=== PATIENT | male | born 1940 | race Caucasian/White ===

== ENCOUNTER 2018-02-26 07:41 | Inpatient (IN) | payer OTHER ==
[2018-02-26] MEDS ORDERED: NA CHLORIDE 0.9% 1,000 ML ONE (07:58)
[2018-02-26] MEDS ORDERED: FENTANYL CITR 100 MCG/2 ML ONE (07:58)
[2018-02-26 08:07] LABS: Absolute Lymphocytes (CBC) 1.5 K/uL (0.7-4.9); Absolute Monocytes 1.4 K/uL (0.1-1.3); Absolute Neutrophil 9.9 K/uL (1.8-8.0); Basophils % 0.4 % (0-1.3); Eosinophils % 1.3 % (0-4.4); Hematocrit 34.6 % (39.6-49.0); Lymphocytes % 11.2 % (15.3-44.8); MCH 33.3 pg (27.0-35.0); MPV 8.6 fL (7.6-11.3); Monocytes % 10.9 % (3.3-12.3); RBC Red Blood Cell Count 3.61 M/uL (4.33-5.43)
[2018-02-26 08:28] LABS: Potassium 3.5 mmol/L (3.5-5.1)
--- NOTE | 2018-02-26 09:35 | RAD REPORT ---
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 Cortical irregularity involves the medial aspect of the tibial stump which may indicate osteomyelitis and should be correlated clinically. No fracture or dislocation is seen. The bones are osteoporotic
--- NOTE | 2018-02-26 10:50 | ER ---
Nurse's Notes [facility] Name: Charan Werner Age: 77 yrs Sex: Male : 1940 Arrival Date: 02/26/2018 Time: 07:43 Bed 16 Private MD: Diagnosis: Cellulitis of left lower limb Presentation: 02/26 07:45 Presenting complaint: EMS states: Worsening pain to left BKA stump x 2 days. Denies hb injury/pain. Transition of care: patient was not received from another setting of care. Onset of symptoms was February 25, 2018. Risk Assessment: Do you want to hurt yourself or someone else? Patient reports no desire to harm self or others. Initial Sepsis Screen:. Care prior to arrival: IV initiated. 20 GA, in the right antecubital area, Glucose check: 141. 07:45 Method Of Arrival: EMS: [facility] 07:45 Acuity: BENOIT 3 hb 08:00 Initial Sepsis Screen: Does the patient meet any 2 criteria? No. Patient's initial sepsis screen is negative. Does the patient have a suspected source of infection? Yes: Other: wound - LEFT BKA. Historical: - Allergies: 07:49 No Known Allergies; hb - Home Meds: 07:49 Laura 180 mg Oral tab 1 tab once daily [Active]; atorvastatin 80 mg Oral tab 1 tab hb once daily [Active]; Peggy Aspirin 81 mg Oral once daily [Active]; fenofibrate 145 mg Oral once daily [Active]; gabapentin 600 mg Oral tab nightly [Active]; Klor-Con 10 10 mEq Oral TbER 1 tab once daily [Active]; losartan-hydrochlorothiazide 100-25 mg Oral tab 1 tab once daily [Active]; metoprolol succinate 50 mg Oral Tb24 twice a day [Active]; PreserVision AREDS 2 917-241-86-1 rs-htci-[id number]-mg Oral cap twice a day [Active]; Slo-Niacin 750 mg Oral TbER once daily [Active]; - PMHx: 07:49 Myocardial infarction; throat cancer; hb - PSHx: 07:49 L BKA; Tonsillectomy; hb - Immunization history:: Adult Immunizations up to date. - Social history:: Smoking status: Patient/guardian denies using tobacco. - Ebola Screening: : No symptoms or risks identified at this time. Screenin:46 Abuse screen: Denies threats or abuse. Denies injuries from another. Nutritional hb screening: No deficits noted. Tuberculosis screening: No symptoms or risk factors identified. Fall Risk Total Escobedo Fall Scale indicates Low Risk Score (25-44 pts). Fall prevention measures have been instituted. Side Rails Up X 2 Frequent Obs/Assesments occuring Family Present and informed to notify staff if they need to leave bedside As available Patient and Family Educated on Fall Prevention Program and strategies. Assessment: 07:46 General: Appears in no apparent distress. uncomfortable, Behavior is calm, cooperative. hb Pain: Pain currently is 8 out of 10 on a pain scale. Neuro: Level of Consciousness is awake, alert, obeys commands, Oriented to person, place, time, situation. Cardiovascular: Capillary refill < 3 seconds Patient's skin is warm and dry. Respiratory: Airway is patent Trachea midline Respiratory effort is even, unlabored, Respiratory pattern is regular, symmetrical, Breath sounds are clear bilaterally. GI: No signs and/or symptoms were reported involving the gastrointestinal system. : No signs and/or symptoms were reported regarding the genitourinary system. EENT: No signs and/or symptoms were reported regarding the EENT system. Derm: Skin is pink, warm \T\ dry. Wound noted left stump. Musculoskeletal: Amputation of LEFT BKA. 08:30 Reassessment: Patient appears in no apparent distress at this time. Patient and/or hb family updated on plan of care and expected duration. Pain level reassessed. Patient is alert, oriented x 3, equal unlabored respirations, skin warm/dry/pink. 09:29 Reassessment: Patient appears in no apparent distress at this time. No changes from cc3 previously documented assessment. Patient and/or family updated on plan of care and expected duration. Pain level reassessed. Patient is alert, oriented x 3, equal unlabored respirations, skin warm/dry/pink. 09:32 Reassessment: Wound care nurse at bedside. hb 10:29 Reassessment: Patient appears in no apparent distress at this time. Patient and/or cc3 family updated on plan of care and expected duration. Pain level reassessed. Patient is alert, oriented x 3, equal unlabored respirations, skin warm/dry/pink. 11:30 Reassessment: Patient appears in no apparent distress at this time. No changes from hb previously documented assessment. Patient and/or family updated on plan of care and expected duration. Pain level reassessed. Patient is alert, oriented x 3, equal unlabored respirations, skin warm/dry/pink. 12:14 Reassessment: Patient appears in no apparent distress at this time. Patient and/or hb family updated on plan of care and expected duration. Pain level reassessed. Patient is alert, oriented x 3, equal unlabored respirations, skin warm/dry/pink. Vital Signs: 07:44 BP 116 / 65; Pulse 60; Resp 16; Temp 97.6(O); Pulse Ox 100% on R/A; Pain 8/10; hb 08:30 BP 130 / 67; Pulse 59; Resp 16; Pulse Ox 100% on R/A; hb 09:29 BP 133 / 68; Pulse 60; Resp 15; Pulse Ox 100% on R/A; Pain 3/10; cc3 10:29 BP 138 / 68; Pulse 61; Resp 14; Pulse Ox 100% on R/A; cc3 11:30 BP 115 / 86; Pulse 56; Resp 15; Pulse Ox 100% on R/A; cc3 ED Course: 07:43 Patient arrived in ED. ch 07:43 Magdalene Nieves, RN is Primary Nurse. hb 07:45 Initial lab(s) drawn, by me, held in ED. Maintain EMS IV. Dressing intact. Site clean \T\ sg dry. Gauge \T\ site: 20 G RAC. IV is patent, is intact, with fluids infusing freely, with good blood return. 07:46 Patient has correct armband on for positive identification. Bed in low position. Call hb light in reach. Side rails up X2. 07:48 Triage completed. hb 07:49 Dio Eduardo PA is PHCP. cp 07:49 Presley Tolliver MD is Attending Physician. cp 07:49 EKG done, by instrument room technician. reviewed by Dio VALENCIA. at1 07:51 Arm band placed on right wrist. hb 08:08 X-ray completed. Portable x-ray completed in exam room. Patient tolerated procedure jb2 well. 08:09 XRAY Knee LEFT 2 view In Process Unspecified. EDMS 10:34 Ezequiel Luna DO is Hospitalizing Provider. cp 11:16 Repeat lab(s) drawn. by me, sent to lab. 3 11:37 X-ray completed. Portable x-ray completed in exam room. Patient tolerated procedure mh1 well. 12:02 Note: gen us delayed. pt having echo study.. lc3 12:13 No provider procedures requiring assistance completed. Patient admitted, IV remains in hb place. 12:23 Ultrasound completed. lc3 12:55 Patient moved back from ultrasound. lc3 Administered Medications: 07:55 Drug: fentaNYL (PF) 25 mcg Route: IVP; Site: right antecubital; sg 08:30 Follow up: Response: No adverse reaction; Pain is decreased hb 07:55 Drug: NS 0.9% 1000 ml Route: IV; Rate: 100 ml/hr; Site: right antecubital; sg 11:39 Follow up: Response: No adverse reaction; IV Status: Completed infusion hb 10:50 Drug: Zosyn 3.375 grams Route: IVPB; Infused Over: 60 mins; Site: right antecubital; cc3 11:38 Follow up: Response: No adverse reaction; IV Status: Completed infusion hb 11:37 Drug: NS 0.9% 1000 ml Route: IV; Rate: 75 ml/hr; Site: right antecubital; hb 11:38 Drug: vancoMYCIN 1 grams Route: IVPB; Infused Over: 2 hrs; Site: right antecubital; hb Outcome: 10:35 Decision to Hospitalize by Provider. cp 12:13 Admitted to Tele accompanied by tech, family with patient, via stretcher, room 407, Report called to FELY Duarte 12:13 Condition: stable 12:13 Instructed on the need for admit, Demonstrated understanding of instructions. 13:03 Patient left the ED. hb Signatures: Dispatcher [employer] EDMS Kaykay Joshi, RN Salvador Hansen ch, RN RN Charan Marley Martha mh1 Tanesha tony, cable cutter and swager EKG Tat1 Dio Eduardo PA PA cp Denny Red lc3 Magdalene Nieves RN RN Sajnuana Barber 3 Mariela Kuo cc3
--- NOTE | 2018-02-26 10:50 | EDPHYS ---
Physician Documentation [facility] Name: Charan Werner Age: 77 yrs Sex: Male : 1940 Arrival Date: 02/26/2018 Time: 07:43 Bed 16 Private MD: ED Physician Presley Tolliver HPI: 02/26 08:01 This 77 yrs old Male presents to ER via EMS with complaints of Leg Pain. cp 08:01 The patient presents with pain. The complaints affect the left knee. Context: HX left cp BKA. Onset: The symptoms/episode began/occurred and became worse this morning. Associated signs and symptoms: Pertinent negatives fever, swelling, warmth. Treatment prior to arrival includes: no previous treatment. Historical: - Allergies: 07:49 No Known Allergies; hb - Home Meds: 07:49 Laura 180 mg Oral tab 1 tab once daily [Active]; atorvastatin 80 mg Oral tab 1 tab hb once daily [Active]; Peggy Aspirin 81 mg Oral once daily [Active]; fenofibrate 145 mg Oral once daily [Active]; gabapentin 600 mg Oral tab nightly [Active]; Klor-Con 10 10 mEq Oral TbER 1 tab once daily [Active]; losartan-hydrochlorothiazide 100-25 mg Oral tab 1 tab once daily [Active]; metoprolol succinate 50 mg Oral Tb24 twice a day [Active]; PreserVision AREDS 2 [id number] hv-owwy-jh-mg Oral cap twice a day [Active]; Slo-Niacin 750 mg Oral TbER once daily [Active]; - PMHx: 07:49 Myocardial infarction; throat cancer; hb - PSHx: 07:49 L BKA; Tonsillectomy; hb - Immunization history:: Adult Immunizations up to date. - Social history:: Smoking status: Patient/guardian denies using tobacco. - Ebola Screening: : No symptoms or risks identified at this time. ROS: 08:05 Constitutional: Negative for body aches, chills, fever, poor PO intake. cp 08:05 Eyes: Negative for injury, pain, redness, and discharge. cp 08:05 ENT: Negative for drainage from ear(s), ear pain, sore throat, difficulty swallowing, difficulty handling secretions. 08:05 Cardiovascular: Negative for chest pain, edema. 08:05 Respiratory: Negative for cough, shortness of breath, wheezing. 08:05 Abdomen/GI: Negative for abdominal pain, nausea, vomiting, and diarrhea. 08:05 Back: Negative for pain at rest, pain with movement, radiated pain. 08:05 MS/extremity: Positive for pain, tenderness, of the amputation area of left lower leg. 08:05 Skin: Negative for swelling. 08:05 All other systems are negative. Exam: 07:52 ECG was reviewed by the Attending Physician. cp 08:10 Constitutional: The patient appears in no acute distress, alert, awake, non-toxic, well cp developed, well nourished. 08:10 Head/Face: Normocephalic, atraumatic. cp 08:10 Eyes: Periorbital structures: appear normal, Conjunctiva: normal, no exudate, no injection, Sclera: no appreciated abnormality, Lids and lashes: appear normal, bilaterally. 08:10 ENT: External ear(s): are unremarkable, Nose: is normal, Mouth: Lips: moist, Oral mucosa: pink and intact, moist, Posterior pharynx: is normal, airway is patent, no erythema, no exudate. 08:10 Chest/axilla: Inspection: normal, Palpation: is normal, no crepitus, no tenderness. 08:10 Cardiovascular: Rate: normal, Rhythm: regular, Edema: is not appreciated, JVD: is not appreciated. 08:10 Respiratory: the patient does not display signs of respiratory distress, Respirations: normal, no use of accessory muscles, no retractions, no splinting, no tachypnea, labored breathing, is not present, Breath sounds: are clear throughout, no decreased breath sounds, no stridor, no wheezing. 08:10 Abdomen/GI: Inspection: abdomen appears normal, Palpation: abdomen is soft and non-tender, in all quadrants. 08:10 Musculoskeletal/extremity: Extremities: grossly normal except: noted in the left leg: tenderness, BKA. 08:10 Skin: minimal erythema and swelling noted at left lower extremity amputation site. Vital Signs: 07:44 BP 116 / 65; Pulse 60; Resp 16; Temp 97.6(O); Pulse Ox 100% on R/A; Pain 8/10; hb 08:30 BP 130 / 67; Pulse 59; Resp 16; Pulse Ox 100% on R/A; hb 09:29 BP 133 / 68; Pulse 60; Resp 15; Pulse Ox 100% on R/A; Pain 3/10; cc3 10:29 BP 138 / 68; Pulse 61; Resp 14; Pulse Ox 100% on R/A; cc3 11:30 BP 115 / 86; Pulse 56; Resp 15; Pulse Ox 100% on R/A; cc3 MDM: 08:01 Patient medically screened. cp 10:30 Data reviewed: vital signs, nurses notes, lab test result(s), radiologic studies, plain cp films. 10:30 Test interpretation: by ED physician or midlevel provider: plain radiologic studies. cp Counseling: I had a detailed discussion with the patient and/or guardian regarding: the historical points, exam findings, and any diagnostic results supporting the discharge/admit diagnosis, lab results, radiology results. 10:33 Physician consultation: Ezequiel Luna DO was contacted at 10:33, regarding admission, cp to the medical/surgical unit. patient's condition, and will see patient in ED, shortly, would like medications started, Zosyn, Vancomycin. 02/26 07:51 Order name: CBC with Diff; Complete Time: 08:43 cp 02/26 08:44 Interpretation: Normal except: WBC 13.0; RBC 3.61; HGB 12.0; HCT 34.6; ANGEL% 76.2; LYM% cp 11.2; NEUT A 9.9; MNA 1.4. 02/26 07:51 Order name: BMP; Complete Time: 08:43 cp 02/26 08:44 Interpretation: Normal except: GLUC 130; BUN 32; CRE 1.60; GFR 42. cp 02/26 09:44 Order name: Wound Culture sg 02/26 09:55 Order name: Urine Dipstick--Ancillary (enter results); Complete Time: 12:49 bd 02/26 10:19 Order name: Blood Culture Adult (2) cp 02/26 10:19 Order name: ESR; Complete Time: 12:49 cp 02/26 07:51 Order name: XRAY Knee LEFT 2 view; Complete Time: 09:41 cp 02/26 10:19 Order name: CRP; Complete Time: 12:49 cp 02/26 10:19 Order name: Procalcitonin; Complete Time: 12:49 cp 08/20 12:49 Interpretation: Procalcitonin < 0.05; Reviewed. cp 02/26 10:55 Order name: CT Head Brain wo Cont cp 02/26 10:55 Order name: Troponin I; Complete Time: 12:49 cp 02/26 11:22 Order name: XRAY Chest (1 view) cp 02/26 12:10 Order name: T4 Free; Complete Time: 12:49 EDMS 02/26 12:10 Order name: Thyroid Stimulating Hormone; Complete Time: 12:49 EDMS 02/26 07:51 Order name: Urine Dipstick-Ancillary (obtain specimen); Complete Time: 09:28 cp 02/26 08:09 Order name: [facility]; Complete Time: 10:01 EDMS 02/26 10:19 Order name: EKG; Complete Time: 10:19 cp 02/26 11:27 Order name: CT; Complete Time: 12:49 EDMS 02/26 11:44 Order name: RAD; Complete Time: 12:49 EDMS EC:52 Rate is 58 beats/min. MD interval is normal. QRS interval is prolonged at 138 msec. QT cp interval is normal. Interpreted by me. Reviewed by me. Administered Medications: 07:55 Drug: fentaNYL (PF) 25 mcg Route: IVP; Site: right antecubital; sg 08:30 Follow up: Response: No adverse reaction; Pain is decreased hb 07:55 Drug: NS 0.9% 1000 ml Route: IV; Rate: 100 ml/hr; Site: right antecubital; sg 11:39 Follow up: Response: No adverse reaction; IV Status: Completed infusion hb 10:50 Drug: Zosyn 3.375 grams Route: IVPB; Infused Over: 60 mins; Site: right antecubital; cc3 11:38 Follow up: Response: No adverse reaction; IV Status: Completed infusion hb 11:37 Drug: NS 0.9% 1000 ml Route: IV; Rate: 75 ml/hr; Site: right antecubital; hb 11:38 Drug: vancoMYCIN 1 grams Route: IVPB; Infused Over: 2 hrs; Site: right antecubital; hb Disposition: 17:25 Co-signature as Attending Physician, Presley Tolliver MD I agree with the assessment and kdr plan of care. Disposition: 02/26/18 10:35 Hospitalization ordered by Ezequiel Luna for Inpatient Admission. Preliminary diagnosis is Cellulitis of left lower limb. - Bed requested for Telemetry/MedSurg (Inpatient). - Status is Inpatient Admission. hb - Condition is Stable. - Problem is new. - Symptoms have improved. UTI on Admission? No Signatures: Dispatcher [employer] EDMS Dilia Donahue Salvador Gerardo, RN RN sg Presley Tolliver MD MD [facility] Dio Eduardo, PA PA cp Magdalene Nieves RN RN Mariela Kuo cc3 Corrections: (The following items were deleted from the chart) 08:44 08:43 Normal except: WBC 13.0; RBC 3.61; HGB 12.0; HCT 34.6; ANGEL% 76.2; LYM% 11.2; NEUT cp A 9.9. cp 11:46 10:35 Hospitalization Ordered by Ezequiel Luna DO for Inpatient Admission. Preliminary bd diagnosis is Cellulitis of left lower limb. Bed requested for Telemetry/MedSurg (Inpatient). Status is Inpatient Admission. Condition is Stable. Problem is new. Symptoms have improved. UTI on Admission? No. cp 13:03 11:46 02/26/2018 10:35 Hospitalization Ordered by Ezequiel Luna DO for Inpatient hb Admission. Preliminary diagnosis is Cellulitis of left lower limb. Bed requested for Telemetry/MedSurg (Inpatient). Status is Inpatient Admission. Condition is Stable. Problem is new. Symptoms have improved. UTI on Admission? No. bd
[2018-02-26] MEDS ORDERED: PIPER/TAZO/NS 3.375gm 3.375 GM/100 ML BAG ONE (10:53)
[2018-02-26] MEDS ORDERED: VANCOMYCIN 1 GM/250 ML BAG ONE (10:53)
[2018-02-26] MEDS ORDERED: ACETAMINOPHEN 500 MG TAB PO PRN (10:59)
[2018-02-26] MEDS ORDERED: TRAMADOL HCL 50 MG TAB PO PRN (10:59)
[2018-02-26] MEDS ORDERED: IPRATROPIUM BROM 0.5MG/2.5ML NEB PRN (10:59)
[2018-02-26] MEDS ORDERED: ONDANSETRON 4 MG/2 ML VIAL IV PRN (10:59)
[2018-02-26] MEDS ORDERED: ALBUTEROL 2.5 MG/3 ML NEB SOL NEB PRN (10:59)
[2018-02-26] MEDS ORDERED: HYDROCODONE/APAP 7.5/325 MG TAB PO PRN (10:59)
[2018-02-26] MEDS: NA CHLORIDE 0.9% 1,000 ML IV SCH (11:00)
--- NOTE | 2018-02-26 11:26 | RAD REPORT ---
EXAM DESCRIPTION: CT - Head Brain Wo Cont - 02/26/2018 11:20 am CLINICAL HISTORY: SYNCOPE COMPARISON: Head Brain Wo Cont dated 05/22/2017; Ct Stroke Brain Wo Cont dated 06/20/2016; Knee Left 2 View dated 02/26/2018 TECHNIQUE: All CT scans are performed using dose optimization technique as appropriate and may inclu de automated exposure control or mA/KV adjustment according to patient size. FINDINGS: No intracranial hemorrhage, hydrocephalus or extra-axial fluid collection.Moderate general ized brain atrophy is present with mild to moderate periventricular and deep white matter chronic jacey rovascular ischemic changes.No areas of brain edema or evidence of midline shift. Left vertebral mayra ry is calcified. The paranasal sinuses and mastoids are clear. The calvarium is intact. IMPRESSION: No acute intracranial abnormality.
--- NOTE | 2018-02-26 11:29 | EKG ---
Test Date: 2018-02-26 Test Time: 07:45:21 Medical Records Administrator: SARA MEASUREMENT RESULTS: Intervals: Rate: 58 HI: 138 QRSD: 138 QT: 478 QTc: 469 [place]: P: 64 HI: 138 QRS: 88 T: 40 INTERPRETIVE STATEMENTS: Sinus bradycardia with premature atrial complexes Right bundle branch block Abnormal ECG Compared to ECG 08/18/2016 06:12:30 Atrial premature complex(es) now present Electronically Signed On 02-26-18 11:28:38 CDT by Mono Nova
--- NOTE | 2018-02-26 11:43 | RAD REPORT ---
EXAM DESCRIPTION: RAD - Chest Single View - 02/26/2018 11:38 am CLINICAL HISTORY: syncope Chest pain. COMPARISON: Chest Pa And Lat (2 Views) dated 10/09/2017; Chest Single View dated 06/20/2016; Chest Pa And Lat (2 Views) dated 11/02/2015; CHEST PA AND LAT 2 VIEW dated 03/28/2013 FINDINGS: Portable technique limits examination quality. The lungs are grossly clear. The heart is normal in size. No displaced fractures. IMPRESSION: No acute intrathoracic process suspected.
[2018-02-26 12:09] LABS: Thyroid Stimulating Hormone 1.39 uIU/mL (0.36-3.74)
[2018-02-26 12:11] LABS: Urine Blood NEGATIVE (NEG); Urine Glucose NEGATIVE (NEG); Urine Protein NEGATIVE (NEG)
--- NOTE | 2018-02-26 13:17 | RAD REPORT ---
EXAM DESCRIPTION: AROLDO - CP - 02/26/2018 12:42 pm CLINICAL HISTORY: Syncope, HX of Carotid disease COMPARISON: Brain Wo Cont dated 10/09/2017 TECHNIQUE: Real-time sonographic evaluation of both carotid systems was performed. Doppler interroga tion was performed with waveform tracing bilaterally. FINDINGS: Normal high resistance waveforms are noted in both external carotid arteries. The common c arotid arteries and internal carotid arteries show normal low resistance waveforms. Moderate hard plaque is present in the both carotid bulbs. Peak systolic and end diastolic velocity v alues and the ICA/CCA ratios are in the non-hemodynamically significant range. Antegrade flow seen in both vertebral arteries. IMPRESSION: Moderate hard plaque is seen in both carotid bulbs. No evidence of a hemodynamically significant stenosis.
[2018-02-26 13:24] VITALS: BMI 21.9
--- NOTE | 2018-02-26 13:36 | ECHO ---
HEIGHT: 5 ft 8 in WEIGHT: 144 lb 0 oz DATE OF STUDY: 02/26/[address]: Ezequiel Luna DO 2-DIMENSIONAL: YES M.MODE: YES DOPPLER: YES COLOR FLOW: YES TDS: NO PORTABLE: NO DEFINITY: NO BUBBLE STUDY: NO DIAGNOSIS: SYNCOPE CARDIAC HISTORY: CATHERIZATION: YES SURGERY: YES PROSTHETIC VALVE: NO PACEMAKER: NO MEASUREMENTS (cm) DIASTOLIC (NORMALS) SYSTOLIC (NORMALS) IVSd 1.0 (0.6-1.2) LA Diam 3.8 (1.9-4.0) LVEF 57% LVIDd 3.8 (3.5-5.7) LVIDs 2.7 (2.0-3.5) %FS 29% LVPWd 1.0 (0.6-1.2) Ao Diam 2.7 (2.0-3.7) 2 DIMENSIONAL ASSESSMENT: RIGHT ATRIUM: NORMAL LEFT ATRIUM: NORMAL RIGHT VENTRICLE: NORMAL LEFT VENTRICLE: NORMAL TRICUSPID VALVE: NORMAL MITRAL VALVE: NORMAL PULMONIC VALVE: NORMAL AORTIC VALVE: NORMAL PERICARDIAL EFFUSION: NONE AORTIC ROOT: NORMAL LEFT VENTRICULAR WALL MOTION: MILD INFERIOR HYPOKINESIS. DOPPLER/COLOR FLOW: MILD TRICUSPID REGURGITATION. NORMAL RIGHT VENTRICULAR SYSTOLIC PRESSURE. COMMENTS: NORMAL LEFT VENTRICULAR EJECTION FRACTION WITH WALL MOTION ABNORMALITY. MILD TRICUSPID REGURGITATION. TECHNOLOGIST: NANCY DUDLEY
--- NOTE | 2018-02-26 13:39 | P.HP ---
Certification for Inpatient Patient admitted to: Inpatient With expected LOS: >2 Midnights Patient will require the following post-hospital care: Other Practitioner: I am a practitioner with admitting privileges, knowledge of patient current condition, hospital course, and medical plan of care. Services: Services provided to patient in accordance with Admission requirements found in Title 42 Section 412.3 of the Code of Federal Regulations Patient History Date of Service: 02/26/18 Primary Care Provider: Dr. Kendrick; Surgery-Dr. Archer Reason for admission: Left below-knee amputation stump pain and syncope History of Present Illness: 77-year-old male present emergency room after he started to have some pain to the left stump of his below-knee amputation. This started several days ago. He noted some exudate as well. No fever, chills noted. Last night pain was worse. He reports that this pain comes and goes. He was treated for an ulcer about 2-3 months ago by surgery. About 6 months ago, patient was given a new prosthetic. Patient also reports a syncopal episode that occurred this morning. This lasted for several seconds. It came on suddenly. He denied any chest pain, shortness of breath, he reports some wheezing from time to time. No significant headaches or dizziness noted. He had been feeling weak during this time. He denied any significant slurred speech or weakness to the lower extremities. Patient has past medical history of hypertension, hyperlipidemia, COPD, tobacco abuse, peripheral vascular disease. In the ER patient was evaluated. White count 13.0, hemoglobin 12. Sodium 137, potassium 3.5, BUN of 32, creatinine 1.6 with a GFR 42. Glucose 130. Head CT showed no acute abnormality. Chest x-ray showed no acute changes. Carotid Doppler showed moderate plaque. X-ray of the left knee showed possible medial aspect stump osteomyelitis. Patient was started on IV antibiotic therapy. Patient admitted for further evaluation. When I saw the patient the ER, he appeared comfortable. He did not appear in any respiratory distress. He did report some fatigue. Family reports that he has not been eating appropriately. He has had poor oral intake. The patient further reports that he had a heart catheterization done last year in August 2016. A stent to the right RCA was done. He also reports that he has been seen by a neurology recently for dizziness. He has been given medication for this. His last MRI was done October of 2017 which was unremarkable. Allergies No Known Allergies Allergy (Verified 08/15/16 10:41) Home medications list reviewed: Yes Home Medications: Losartan/Hydrochlorothiazide [Hyzaar 100-25 Tablet] 1 each PO BEDTIME 08/17/16 Vitamin B Complex [B Complex] 1 each PO DAILY 08/17/16 Atorvastatin Calcium [Lipitor] 80 mg PO BEDTIME tab 08/18/16 Fenofibrate [Tricor*] 160 mg PO DAILY AT SUPPER tab 08/18/16 Metoprolol Succinate [Toprol Xl*] 50 mg PO BID 6AM 6PM tab 08/18/16 Potassium Oral Tab [Klor-Con 10 mEq Tab*] 10 meq PO DAILY tab 08/18/16 Aspirin [Aspirin EC 325 MG] 325 mg PO DAILY 02/26/18 Clopidogrel Bisulfate [Plavix] 75 mg PO BEDTIME 02/26/18 - Past Medical/Surgical History Diabetic: No -: Hypertension -: Hyperlipidemia -: Tobacco abuse -: Peripheral vascular disease -: Carotid arterial disease -: CAD with stent to the RCA -: Chronic renal disease -: History of left BKA -: Left BKA Psychosocial/ Personal History: Patient is of 54 years. He has 2 children. He is retired - Family History Brother -: Heart disease, Hypertension, Other (see notes) (Dementia) - Social History Smoking Status: Heavy Tobacco smoker (>10 cigarettes/day) Counseled patient to stop smoking for: less than 10 minutes Smoking therapy provided: Yes Patient receptive to therapy: Yes Alcohol use: No CD- Drugs: No Caffeine use: Yes Place of Residence: Home Review of Systems General: Weakness, Malaise, As per HPI Eyes: Unremarkable ENT: Unremarkable Respiratory: Wheezing, As per HPI Cardiovascular: Light Headedness, As per HPI Gastrointestinal: Unremarkable Genitourinary: Unremarkable Musculoskeletal: Pedal edema, As per HPI Integumentary: As per HPI Neurological: Weakness, As per HPI Lymphatics: Unremarkable Physical Examination - Vital Signs Temperature: 97 F Blood Pressure: 158/72 Pulse: 65 Respirations: 18 Pulse Ox (%): 96 - Physical Exam General: Alert, In no apparent distress, Oriented x3, Cooperative HEENT: Atraumatic, Normocephalic, PERRLA, Other (Dry mucous membranes) Neck: Supple, No Thyromegaly Respiratory: Expiratory wheezes (Occasional wheezing bilateral) Cardiovascular: Normal pulses, Regular rate/rhythm Gastrointestinal: Normal bowel sounds, Soft and benign, Non-distended, No ascites, No tenderness, No masses, No rebound, No guarding Musculoskeletal: No warmth, Tenderness (Pain to the stump of the left below- knee amputation.) Integumentary: Other (Mild erythema noted to the left below-knee amputation stump medially and distally.) Neurological: Normal speech, Normal strength at 5/5 x4 extr, Normal tone, Normal affect - Studies Laboratory Data (last 24 hrs) 02/26/18 07:49: Sodium 137, Potassium 3.5, BUN 32 H, Creatinine 1.60 H, Glucose 130 H 02/26/18 07:49: WBC 13.0 H, Hgb 12.0 L, Hct 34.6 L, Plt Count 244 Assessment and Plan - Problems (Diagnosis) (1) Osteomyelitis Current Visit: Yes Status: Suspected Plan: X-ray of the left stump notes possible osteomyelitis. Will check MRI to confirm. Patient started on vancomycin and Zosyn. Will consult surgery and infectious disease to further address. If positive for osteomyelitis patient will likely require long-term IV antibiotic therapy and PICC line. If so patient may also require long-term acute care facility placement or skilled placement. This was addressed in detail with the patient. Patient understands this Qualifiers: Osteomyelitis type: unspecified type Osteomyelitis location: other site Qualified Code(s): M86.9 - Osteomyelitis, unspecified (2) Syncope Current Visit: Yes Status: Acute Plan: Patient with syncopal episode. Patient has multiple risk factors. Will check echocardiogram, MRI stroke protocol. Will consult cardiology and neurology to further assess. Patient with history of Coronary artery disease with previous stent placed to the RCA in 2017. Patient with peripheral vascular disease and Carotid arterial disease. Qualifiers: Syncope type: unspecified Qualified Code(s): R55 - Syncope and collapse (3) Chronic renal disease Current Visit: Yes Status: Acute Plan: Will hold EMILIANO-inhibitor and diuretic therapy. Will check renal ultrasound. Will consult Nephrology to further assess. Qualifiers: Chronic kidney disease stage: stage 2 (mild) Qualified Code(s): N18.2 - Chronic kidney disease, stage 2 (mild) (4) Peripheral vascular disease Current Visit: Yes Status: Chronic Plan: Will continue with aspirin. Will provide DVT prophylaxis. (5) Carotid arterial disease Current Visit: Yes Status: Chronic Plan: Will continue with aspirin. Will also continue with his statin medication. Will check carotid Doppler and fasting lipid panel. Qualifiers: Carotid artery disease type: unspecified Laterality: bilateral Qualified Code(s): I77.9 - Disorder of arteries and arterioles, unspecified (6) Hypertension Current Visit: Yes Status: Chronic Plan: Will continue with his medication but will make adjustments due to acute on chronic renal disease. Will hold EMILIANO-inhibitor and diuretic therapy at time. Qualifiers: Hypertension type: essential hypertension Qualified Code(s): I10 - Essential (primary) hypertension (7) Hyperlipidemia Current Visit: Yes Status: Chronic Plan: Will continue with statin medication. Will check fasting lipid panel. Qualifiers: Hyperlipidemia type: unspecified Qualified Code(s): E78.5 - Hyperlipidemia , unspecified (8) Tobacco abuse Current Visit: Yes Status: Chronic Plan: Will provide nicotine patch. Cessation addressed in detail. (9) COPD (chronic obstructive pulmonary disease) Current Visit: Yes Status: Suspected Plan: Patient may have underlying COPD. Will start Brovana and nebulized treatments. Patient may require medication at discharge. Qualifiers: COPD type: chronic bronchitis Chronic bronchitis type: unspecified Qualified Code(s): J42 - Unspecified chronic bronchitis (10) CAD (coronary artery disease) Onset Date: 08/18/16 Current Visit: No Status: Chronic Plan: Continue as above. (11) Anemia Current Visit: Yes Status: Chronic Plan: This is likely chronic from chronic renal disease. Will monitor closely. Qualifiers: Anemia type: other cause Other causes of anemia: chronic disease, other Qualified Code(s): D63.8 - Anemia in other chronic diseases classified elsewhere Discharge Plan: Other (Long-term acute care facility placement verses skilled placement) Plan to discharge in: Greater than 2 days - Advance Directives Does patient have a Living Will: No Does patient have a Durable POA for Healthcare: No - Code Status/Comfort Care Code Status Assessed: Yes (Patient is full code.) Time Spent Managing Pts Care (In Minutes): 55
--- NOTE | 2018-02-26 13:51 | RAD REPORT ---
EXAM DESCRIPTION: US - Renal Ultrasound-Complete - 02/26/2018 12:46 pm CLINICAL HISTORY: Chronic renal disease COMPARISON: No comparisons FINDINGS: Both kidneys are normal in size, shape and echotexture. The right kidney measures 9.7 x 5.4 x 4.7 cm. No hydronephrosis, focal mass or perinephric fluid. Mul tiple benign-appearing cysts are present. The left kidney measures 10.6 x 5.5 x 4.8 cm. No hydronephrosis, focal mass or perinephric fluid. Mul tiple benign-appearing cysts are present largest measuring 4 cm. The urinary bladder is incompletely distended without gross abnormality seen. IMPRESSION: Multiple bilateral renal cysts are present, benign in appearance.
[2018-02-26] MEDS ORDERED: PNEUMOCOCCAL VACCINE 0.5 ML IMVAC ONE (15:00)
[2018-02-26] MEDS: VANCOMYCIN 1.25 GM in NA CHLORIDE 0.9% 250 ML IVPB SCH (17:45)
[2018-02-26] MEDS: NICOTINE 21 MG/PAT TD SCH (17:46)
[2018-02-26] MEDS: PIPER/TAZO/NS 3.375gm 3.375 GM/100 ML BAG IVPB SCH (17:46)
[2018-02-26] MEDS: METOPROLOL XL 50 MG TAB PO SCH (17:57)
[2018-02-26] MEDS: ENOXAPARIN 40 MG/0.4 ML SQ SCH (17:57)
--- NOTE | 2018-02-26 19:13 | CON ---
History Of Present Illness: Mr. Werner came to the hospital because he had lightheadedness. Every t maximo he tried to stand up he got near syncopal and there was syncope. He was brought to the ER. The patient has coronary heart disease with a stent placed in his right coronary artery about a year and a half ago. He is not having angina now. He has a history of severe vascular disease. He had a lef t znljp-qrx-[id number] amputation more than 20 years ago. He had a aortofemoral bypass long ago also. He has coronary heart disease with his last stent in August of 2016. He is a heavy cigarette smoker, has never really tried to quit. He has underlying hypertension, dyslipidemia. Outpatient Medications: Losartan, hydrochlorothiazide, Lipitor 80, fenofibrate, metoprolol potassium , clopidogrel, and aspirin. Allergies: HE HAS NO ALLERGIES. Physical Examination: General: He appears to be his stated age or older, not in distress. Vital signs: Blood pressure 158/72 supine. We do not have a standing or sitting blood pressure, anjel t will be done later. Lungs: Clear. Heart: Unremarkable. No carotid bruit. Extremities: Left bfajl-zqb-iaak amputation. Distal pulses are diminished. There is an ulcer at th e end of the stump. Radiologic Data: X-rays reveal possible osteomyelitis of the left tibia. Impression: The patient has hypotension, falling and syncope was probably hypotension caused by infe ction. He will be getting antibiotics. We will try and identify the organism that is responsible fo r this by culturing the wound and culturing blood. Ultimately, he may benefit from a repeat amputati on to get some of the bone that is infected. It would seriously limit his ability to walk but of cou rse it is a difficult decision. He has been walking with a prosthetic leg for more than 20 years. I am not sure enough of the tibia could be removed and still allow him to walk the way he has been, fe lt a very difficult choice to be made indeed. We will try and learn more about how much bone might b e infected with other studies. He is a stable enough patient to undergo an amputation if it is neede d. I think once his infection is under better control, his blood pressure will be easier to control and he will be able to stand again. MITUL/CHRISTOPHER Voice ID: [id number] Report ID: [id number]
[2018-02-26 19:55] LABS: CKMB Creatine Kinase MB 1.2 ng/mL (0.3-3.6)
[2018-02-26] MEDS: KCL 20 MEQ/100 mL IVPB 20 MEQ/100 ML BAG IV SCH ×3 (20:00→22:07)
--- NOTE | 2018-02-26 20:34 | CON ---
This is a 77-year-old male I was consulted for left BKA site osteomyelitis. The patient had BKA done 17 years ago. Denies any headache, nausea, vomiting, chest pain, abdominal pain, constipation, or d iarrhea. The patient came in because of worsening pain and discharge from the BKA stump site. Has s ignificant history of tobacco usage and cardiac problems including myocardial infarction. No other c omplaints at this time. No fevers. No allergies. No other discomfort. Past Medical History: Hypertension, hyperlipidemia, tobacco abuse, peripheral vascular disease, zimmer tid artery disease, coronary artery disease, left BKA 17 years ago. Social History: Tobacco, positive. Alcohol, negative. Family History: Noncontributory. Medication: Vancomycin and Zosyn. See MARs for other medication. Allergies: NO KNOWN DRUG ALLERGIES. Review of Systems: A 10-point review was performed. Physical Examination: General: This is a 77-year-old male, lying in bed, not in any acute cardiopulmonary distress. Vital Signs: Temperature 97, pulse 65, respiration 18, blood pressure 158/72. HEENT: Unremarkable. Neck: Supple. Lungs: Clear to auscultation. Heart: S1, S2. Regular. Abdomen: Soft, nontender. Bowel sounds positive. Extremity: Left BKA site with yellowish discharge, foul smelling. Assessment And Plan: Osteomyelitis of left BKA amputation stump site with foul smelling discharge. I agree with vancomycin and Zosyn. Empiric coverage, awaiting culture results. Continue antibiotic for 6 weeks. Consider long-term acute care. We will follow the patient as needed. Thank you, Dr. Luna for consult. NF/PERLITAL Voice ID: [id number] Report ID: [id number]
--- NOTE | 2018-02-26 21:32 | RAD REPORT ---
EXAM DESCRIPTION: MRI - Brain Wo Cont - 02/26/2018 9:24 pm CLINICAL HISTORY: TIA/CVA COMPARISON: MRA Head Wo Cont dated 02/26/2018; Brain Wo Cont dated 10/09/2017 TECHNIQUE: Multi-sequence, multiplanar MR imaging of the brain was performed without contrast. FINDINGS: No intracranial hemorrhage, hydrocephalus or extra-axial fluid collections.Moderate conflu ent T2/FLAIR hyperintensity in the periventricular and deep white matter is present compatible with c hronic microvascular ischemic changes. No edema or shift of midline structures. No findings to suspec t brain mass. DWI is negative for acute CVA. Midline structures are normally formed. Mastoid air cells and paranasal sinuses are clear. IMPRESSION: Negative for acute CVA or other acute intracranial abnormality.
--- NOTE | 2018-02-26 21:38 | RAD REPORT ---
EXAM DESCRIPTION: MRI - MRA Head Wo Cont - 02/26/2018 9:25 pm CLINICAL HISTORY: Syncope, HX-HTN/Hyperlipidemia/Carotid dz CVA COMPARISON: Head Brain Wo Cont dated 02/26/2018 FINDINGS: 3D noncontrast [id number] MR angiography of the [place] was performed. No aneurysm, flow-limiting stenosis or vascular malformation is seen. Forward flow seen in both verte bral arteries slightly larger on the left. The visualized dural venous sinuses appear patent. IMPRESSION: No significant flow abnormality of the [place] is identified.
--- NOTE | 2018-02-26 21:44 | RAD REPORT ---
EXAM DESCRIPTION: MRI - Knee Left Wo Cont - 02/26/2018 9:24 pm CLINICAL HISTORY: Evaluate for osteomyelitis Left BKA Pain and swelling COMPARISON: No comparisons FINDINGS: The medial meniscus is intact. The lateral meniscus is intact. The ACL and PCL are intact. The collateral ligaments are intact. Patellar and quadriceps tendons are normal. Below the knee amputation noted. Blooming artifact is seen at the stump level likely attributable to metal in the region. No marrow replacing process is seen within the stump to indicate osteomyelitis. The skin and subcutaneous tissues about the stump are thickened and mildly irregular. A small joint effusion is seen. IMPRESSION: No definitive evidence of stump osteomyelitis. Assessment in the region is mildly limite d by blooming artifact but felt to be of diagnostic quality.
[2018-02-26] MEDS: GABAPENTIN 300 MG CAP PO SCH (22:02)
[2018-02-26] MEDS: ATORVASTATIN 80 MG TAB PO SCH (22:02)
[2018-02-26] MEDS ORDERED: POTASSIUM CL SA 10 MEQ TAB PO ONE (22:24)
[2018-02-27] MEDS: ARFORMOTEROL TARTRATE 15 MCG/2 ML VIAL.NEB NEB SCH ×3 (00:04→20:31)
[2018-02-27] MEDS: PIPER/TAZO/NS 3.375gm 3.375 GM/100 ML BAG IVPB SCH ×2 (00:23→08:25)
--- NOTE | 2018-02-27 02:59 | CON ---
Date of Consultation: 02/26/2018 Chief Complaint: Chronic kidney disease, prerenal azotemia. History Of Present Illness: The patient is a 77-year-old man with history of peripheral vascular disease, hypertension, tobacco abuse, carotid arterial disease, chronic kidney stage 3, and history of left BKA. The patient has been taking multiple medications for blood pressure control including losartan-HCTZ, metoprolol. The patient has history of hyperlipidemia and peripheral vascular disease. Previously, he underwent BKA. The patient came to the hospital because of syncope. He was found to have infection in the left stump. He previously underwent left below-knee amputation. He noted some exudate and drainage with redness. He did not have fever or chills. He was complaining of pain in the stump area. Previously, he was treated for ulcer about 2-3 months ago by surgical team and Wound Care. Nephrology consultation was requested for abnormal kidney function test. The patient has history of chronic kidney disease due to hypertensive kidney disease. He is active smoker and has COPD, hypertension, hyperlipidemia, and peripheral vascular disease. He is admitted to the hospital because of status post presyncope. He was complaining of dizziness, headaches, and progressively worse balance and gait problem and developed syncope. Apparently, he did not have a seizure. Review of Systems: Constitutional: Complains of fatigue. Denies fever, chills. Eyes: Denies vision changes. Ears, Nose, Mouth and Throat: Denies sore throat or earache. Respiratory: Denies PND, orthopnea. Cardiovascular: Denies chest pain, had syncope. GI: Denies nausea, vomiting. : Denies dysuria, hematuria. Musculoskeletal: Denies muscle aches, although he had stump infection with drainage. All other systems reviewed and all are negative. Past Medical History: Hypertension, hyperlipidemia, tobacco abuse, peripheral vascular disease, carotid arterial disease, coronary artery disease with stent to RCA, chronic kidney stage 3, history of left BKA. Family History: Heart disease, hypertension, dementia. Social History: Active smoker, heavy smoker, smokes 10 cigarettes per day. Denies alcohol or illicit drugs. Physical Examination: Vital Signs: Blood pressure is 158/72. Eyes: Anicteric sclerae. EOMI. Ears, Nose, Mouth and Throat: Oral mucosa moist. No pallor. Neck: Supple. No JVD. No bruits. Lungs: Clear to auscultation bilaterally. Heart: S1, S2. No pericardial friction rub. Abdomen: Soft, benign, nontender. No rebound. No guarding. Extremities: Dressing in place. No active bleeding, no oozing. No clubbing. No cyanosis. Neurological: Moving extremities. Cranial nerves intact. Psychiatric: Alert, oriented x3. Normal affect. Laboratory Data: WBC 13, hemoglobin 12, platelet count is 244,000. Renal ultrasound showed multiple bilateral renal cysts benign in appearance, left kidney 10.6 cm in length and right kidney 9.7 cm in length. No perinephric fluid. Urinalysis; negative for blood, negative for leukocyte esterase, and negative for protein. Sodium 137, potassium 3.5, chloride 104, CO2 of 28, BUN 32, creatinine 1.6, estimated GFR 42, glucose 130, calcium 8.9. Impression And Plan: 1. Chronic kidney disease stage 3. Baseline creatinine level was 1.3. The patient developed some prerenal azotemia. Continue IV fluids. 2. Osteomyelitis. The patient is started on vancomycin and Zosyn. Monitor vancomycin toxicity panel. Adjust vancomycin accordingly to trough level. 3. Hypertension. The patient presented with presyncope and syncope. During this hospital revaluation blood pressure is in acceptable control. Continue low -sodium diet and blood pressure medication. Cardiac workup was initiated for acute coronary syndrome. 4. Peripheral vascular disease. The patient is on cholesterol lowering medication. Re-evaluate lipid panel. 5. The patient has some prerenal azotemia, less likely there is element of rhabdomyolysis at this point. CK level is within normal limits. The patient does not have obstructive uropathy but has chronic kidney disease with bilateral kidney cysts. The patient needs to follow up as outpatient for chronic kidney disease stage 3. EB/MODL Voice ID: [id number] Report ID: [id number] RADHA
[2018-02-27 04:42] LABS: Absolute Lymphocytes (CBC) 1.3 K/uL (0.7-4.9); Absolute Monocytes 1.4 K/uL (0.1-1.3); Absolute Neutrophil 8.1 K/uL (1.8-8.0); Basophils % 0.3 % (0-1.3); Eosinophils % 0.7 % (0-4.4); Hematocrit 32.2 % (39.6-49.0); Lymphocytes % 12.1 % (15.3-44.8); MCH 33.5 pg (27.0-35.0); MPV 8.9 fL (7.6-11.3); Monocytes % 13.1 % (3.3-12.3); RBC Red Blood Cell Count 3.36 M/uL (4.33-5.43)
[2018-02-27 04:53] LABS: Urine Appearance CLOUDY; Urine Bilirubin NEGATIVE (NEG); Urine Blood 3+ (NEG); Urine Color YELLOW; Urine Glucose NEGATIVE (NEG); Urine Protein 1+ (NEG); Urine Specific Gravity 1.025 (1.005-1.030)
[2018-02-27 04:54] LABS: Urine Microscopic Reflex ORDER UMIC
[2018-02-27 04:54] LABS: CKMB Creatine Kinase MB 1.5 ng/mL (0.3-3.6); Magnesium 1.6 mg/dL (1.8-2.4); Potassium 3.3 mmol/L (3.5-5.1)
[2018-02-27 05:05] LABS: Urine Bacteria <20 /HPF (NONE SEEN); Urine Culture Reflex Order REFLEXED; Urine RBC >50 /HPF (NONE SEEN)
[2018-02-27] MEDS ORDERED: MAGNESIUM SULFATE 1 gm IVPB 1 GM/100 ML BAG IV ONE (05:19)
[2018-02-27] MEDS: NA CHLORIDE 0.9% 1,000 ML IV SCH (05:58)
[2018-02-27] MEDS: METOPROLOL XL 50 MG TAB PO SCH ×3 (06:00→17:12)
[2018-02-27] MEDS ORDERED: POTASSIUM CL 40 MEQ in NA CHLORIDE 0.9% 500 ML IV SCH (06:00)
[2018-02-27] MEDS: KCL 20 MEQ/100 mL IVPB 20 MEQ/100 ML BAG IV SCH ×2 (07:41→09:00)
--- NOTE | 2018-02-27 08:23 | CON ---
Date of Consultation: 02/26/2018 Diagnosis: Left leg osteomyelitis. History Of Present Illness: He is a case of a 77-year-old patient, comes to us with multiple medical problems, but during the workup the patient was found to have a nonhealing wound and drainage wound coming from the left below-knee. The patient says some kind of gauze over that area since h e use prosthetic to ambulate. He does not remember any specific trauma, he does not remember exactly when that happened. He denies any dysuria, hematuria, hematochezia, or melena. Denies any recent [place]. Denies any family member sick at home. Allergies: NONE. Social History: He does not smoke. He does not drink alcohol. Past Medical History: Include throat cancer, peripheral vascular disease. Past Surgical History: Include tonsillectomy, left DKA many years ago. Family History: Noncontributory. Review of Systems: Constitutional: Denies any fever or chills. Respiratory: Denies any shortness of breath. Gastrointestinal: Denies any abdominal pain, nausea, vomiting, melena, hematochezia. Extremities: The patient has redness and open wound with drainage from the distal side of the below- knee amputation with tenderness. Laboratory Data: Blood work shows WBC count of 13, hemoglobin of 12 and platelets 244. Potassium 3.5 , glucose 130. X-ray of the below-knee area shows also osteomyelitis. Assessment: A 77-year-old patient with left below-knee several years ago, ambulating with prosthetic with an open nonhealing wound over the medial side with drainage from that area and erythema and inc reased temperature. Clinically, he has cellulitis of that area, nonhealing wound and the bone ____. The x-ray is showing possible cellulitis, most likely, it is real. From the surgical standpoi nt, we will try conservative treatment first. I do not see any bone sticking out right now, so there is no need for revision at this moment but at least we have to get Infectious Disease for possible l sonny-term antibiotics. It is important in this case that it was explained to him in details the off-l oading of that stump. also was explained to the patient. When he get discharge, we would like to [facility] the [facility] From there, we might also contact the pros thetic people to see if they can help us with the offloading and cushion of his current prosthetic. We will follow the patient with you. In the meantime, site to the area and cover with Loly BOLIVAR. KATE/CHRISTOPHER Voice ID: [id number] Report ID: [id number]
[2018-02-27] MEDS: MEDIHONEY 44 ML TOPICAL TUBE TOP SCH (08:24)
[2018-02-27] MEDS: NICOTINE 21 MG/PAT TD SCH (08:25)
[2018-02-27] MEDS: FENOFIBRATE 160 MG TAB PO SCH ×2 (09:00→11:59)
[2018-02-27] MEDS ORDERED: VANCOMYCIN 1 GM in NA CHLORIDE 0.9% 500 ML IVPB SCH (09:00)
--- NOTE | 2018-02-27 10:44 | P.PN ---
Subjective Date of Service: 02/27/18 Primary Care Provider: Dr. Kendrick; Surgery-Dr. Archer Chief Complaint: Left below-knee amputation stump pain and syncope Subjective: Doing well Physical Examination - Vital Signs Temperature: 97.2 F Blood Pressure: 110/65 Pulse: 62 Respirations: 18 Pulse Ox (%): 98 - Physical Exam General: Alert, In no apparent distress, Oriented x3, Cooperative HEENT: Atraumatic Neck: Supple Respiratory: Clear to auscultation bilaterally, Normal air movement Cardiovascular: Normal pulses, Regular rate/rhythm Gastrointestinal: Normal bowel sounds, Soft and benign, Non-distended, No tenderness, No masses, No rebound, No guarding Musculoskeletal: No tenderness, No warmth Integumentary: Other (mild erythema and tenderness to the left stump) Neurological: Normal speech, Normal strength at 5/5 x4 extr, Normal tone, Normal affect Urinary: Vincent catheter - Studies Medications List Reviewed: Yes Assessment & Plan - Problems (Diagnosis) (1) Syncope Onset Date: 02/27/18 Current Visit: Yes Status: Acute Plan: Patient with syncopal episode likely from infectious process. Echocardiogram unremarkable. MRI showed no acute stroke. Cardiology has evaluated patient. No cardiac intervention required. Continue treatment of cellulitis of the left below-knee amputation stump. Osteomyelitis has been ruled out. Await further recommendations from infectious disease and surgery. Patient with history of Coronary artery disease with previous stent placed to the RCA in 2017. Patient with peripheral vascular disease and Carotid arterial disease. Qualifiers: Syncope type: unspecified Qualified Code(s): R55 - Syncope and collapse (2) Chronic renal disease Onset Date: 02/27/18 Current Visit: Yes Status: Acute Plan: Will continue to hold EMILIANO-inhibitor and diuretic therapy. Renal ultrasound shows bilateral renal cysts. Nephrology consulted to further assess. Medications will need to be renally dosed. Qualifiers: Chronic kidney disease stage: stage 2 (mild) Qualified Code(s): N18.2 - Chronic kidney disease, stage 2 (mild) (3) Peripheral vascular disease Onset Date: 02/27/18 Current Visit: Yes Status: Chronic Plan: Will continue with aspirin. Will provide DVT prophylaxis. (4) Carotid arterial disease Onset Date: 02/27/18 Current Visit: Yes Status: Chronic Plan: Will continue with aspirin. Will also continue with his statin medication. Qualifiers: Carotid artery disease type: unspecified Laterality: bilateral Qualified Code(s): I77.9 - Disorder of arteries and arterioles, unspecified (5) Hypertension Onset Date: 02/27/18 Current Visit: Yes Status: Chronic Plan: Continue make adjustments in his medications. Will hold EMILIANO-inhibitor and diuretic therapy due to chronic renal disease. Qualifiers: Hypertension type: essential hypertension Qualified Code(s): I10 - Essential (primary) hypertension (6) Hyperlipidemia Onset Date: 02/27/18 Current Visit: Yes Status: Chronic Plan: Will continue with statin medication. Qualifiers: Hyperlipidemia type: unspecified Qualified Code(s): E78.5 - Hyperlipidemia , unspecified (7) Tobacco abuse Onset Date: 02/27/18 Current Visit: Yes Status: Chronic Plan: Will provide nicotine patch. Cessation addressed in detail. (8) COPD (chronic obstructive pulmonary disease) Onset Date: 02/27/18 Current Visit: Yes Status: Suspected Plan: Patient may have underlying COPD. Continue with COPD treatment. Patient will need medication at discharge. Qualifiers: COPD type: chronic bronchitis Chronic bronchitis type: unspecified Qualified Code(s): J42 - Unspecified chronic bronchitis (9) CAD (coronary artery disease) Onset Date: 08/18/16 Current Visit: No Status: Chronic Plan: Continue as above. (10) Anemia Onset Date: 02/27/18 Current Visit: Yes Status: Chronic Plan: This is likely chronic from chronic renal disease. Will monitor closely. Qualifiers: Anemia type: other cause Other causes of anemia: chronic disease, other Qualified Code(s): D63.8 - Anemia in other chronic diseases classified elsewhere (11) Cellulitis Current Visit: Yes Status: Acute Plan: Left below-knee amputation cellulitis noted. Initial x-ray showed possible osteomyelitis. This was ruled out with MRI. MRI reviewed with radiology. No osteomyelitis noted. Will continue with antibiotic therapy. Await wound and blood culture results. Will discuss with infectious and surgery Discharge Plan: Home Plan to discharge in: Greater than 2 days Time Spent Managing Pts Care (In Minutes): 55
[2018-02-27] MEDS ORDERED: POTASSIUM 25 MEQ EFFERV TAB PO ONE (11:34)
[2018-02-27] MEDS: ASPIRIN EC 81 MG TAB PO SCH (11:58)
--- NOTE | 2018-02-27 12:00 | RAD REPORT ---
EXAM DESCRIPTION: RAD - Barium Swallow Modified - 02/27/2018 11:43 am CLINICAL HISTORY: cough COMPARISON: Renal Ultrasound-Complete dated 02/26/2018 TECHNIQUE: The patient was given liquid, semi-solid and solid forms of barium. Lateral view fluorosc opic imaging was performed in conjunction with speech pathology service. FINDINGS: LARYNGEAL PENETRATION CLEARED MILD WITH STRAW SIP PHARYNGEAL RESIDUE PYRIFORM SIGNIFICANT ESOPHAGEAL STASIS WITH SIGNIFICANT RETROGRADE FLOW INTO THE PYRIFORM SINUSES. Total fluoroscopy time: 4 minutes 55 seconds.
[2018-02-27] MEDS: PIPER/TAZO/NS 4.5gm 4.5 GM/100 ML BAG IVPB SCH (17:15)
[2018-02-27] MEDS: ENOXAPARIN 40 MG/0.4 ML SQ SCH (17:15)
--- NOTE | 2018-02-27 18:28 | PN ---
Subjective: The patient is lying in bed. Denies any headache, nausea, vomiting, chest pain, abdomin al pain, constipation, or diarrhea. Has esophagitis and being followed by the GI team. Objective: Vital Signs: Temperature 98, pulse 61, respirations 16, blood pressure 126/61. Lungs: Clear to auscultation. Heart: S1, S2. Regular. Abdomen: Soft, nontender. Bowel sounds positive Extremities: No edema. Laboratory Data: WBC 10.9, down from 13,000, hemoglobin 11.3, platelets are 194. Sodium 138, potass ium 3.3, chloride 106, bicarb 24, BUN 24, creatinine 1.2, glucose is . Assessment And Plan: Left below-knee amputation stump, most likely osteomyelitis with discharge. Le ukocytosis is resolving. Continue IV antibiotic. Total course of 6 weeks. Consider long-term acute care. We will follow the patient closely. NF/MODL Voice ID: [id number] Report ID: [id number]
--- NOTE | 2018-02-27 20:58 | PN ---
Date of Progress Note: 02/27/2018 Subjective: The patient is still feeling weak. No nausea. No vomiting. The patient was admitted w ith cellulitis for the stump on prosthetic leg. Physical Examination: Vital Signs: Blood pressure 126/61, pulse of 61, afebrile. Chest: Clear to auscultation. Heart: S1, S2. Systolic murmur. Abdomen: Soft, nontender. Extremity: Left below-knee amputation and dressing on the stump. Laboratory Data: WBC 10.9, H and H 11.3/32.2, platelet 194. Sodium 138, potassium 3.3, bicarb 24, B UN 24, creatinine 1.2, GFR of 59, TSH of 1.3. Urinalysis: RBC more than 50, WBC more than 50, +1 pr otein. Renal ultrasound showing 9.7 x 10.6 bilateral cyst. Assessment And Plan: 1.Acute kidney injury on chronic kidney disease secondary to polycystic kidney disease. Acute kidne y injury secondary to prerenal, secondary to dehydration, poor intake, chronic kidney disease, polycy stic kidney disease, back to his baseline, looks to me normal volume currently. I am going to go ahe ad and continue hydration for current IV bag and we will monitor the patient. We will go ahead and s end for protein creatinine to evaluate the protein urea. I will go ahead and adjust his Zosyn to full does and we will follow up culture. 2.Hypertension, controlled, optimal. I will keep holding hydrochlorothiazide and losartan given the recent acute kidney injury. 3.Hypokalemia, continue supplement. 4.Cellulitis as above. We will adjust the Zosyn. Current Medications: 1.The patient on Zosyn 3.375 q.8, vancomycin 1.25 q. 36. 2.Breathing treatment. 3.Metoprolol. 4.Lovenox. 5.Fenofibrate. 6.Gabapentin. 7.Zofran. 8.Tramadol. Case discussed with the patient, verbalized understanding. Discussed with the staff. DAMARIS/CHRISTOPHER Voice ID: [id number] Report ID: [id number]
[2018-02-27] MEDS: ATORVASTATIN 80 MG TAB PO SCH (21:16)
[2018-02-27] MEDS: GABAPENTIN 300 MG CAP PO SCH (21:16)
[2018-02-28] MEDS: PIPER/TAZO/NS 4.5gm 4.5 GM/100 ML BAG IVPB SCH ×3 (00:04→16:43)
--- NOTE | 2018-02-28 00:51 | CON ---
Date of Consultation: 02/27/2018 Time: 19:30. Reason: Syncope. History: This is a 77-year-old gentleman with history of prior left [id number] amputation, hyper tension, hyperlipidemia, vascular disease, coronary disease, chronic renal insufficiency. He was in his usual state of health until Monday when he started noticing pain on the stump of the left as well as some lightheadedness, got to the point where after he stood up, he actually had an episode of syn cope, came to the emergency department. Evaluation there suggested osteomyelitis left knee, cortical irregularity in the medial aspect of the tibial stump. White count 13,000. Sedimentation rate 8. He was not particularly orthostatic on orthostatic vitals testing, 145/75 with a heart rate of 60 lyi ng and 151/83 with a heart rate of 73 standing. Brain MRI demonstrates no evidence of a stroke. Car otid Doppler, no hemodynamically significant stenosis. Cultures are all pending. The patient feels better on IV antibiotics, vancomycin and Zosyn. No further episodes of syncope are noted. Neuro cat ging is normal. Neurologic consultation was requested. Past Medical History: As alluded to. Allergies: NONE. Active Medications: Albuterol, Brovana, aspirin 81, Lipitor 80 at night, Lovenox 40 daily, fenofibra te 60 daily, gabapentin 600 at night, Donora 7.5/325 q.6 as needed, Atrovent nebulizer, Toprol-XL 50 t wice daily, Zofran, Zosyn IV, tramadol 50 as needed, vancomycin. Social History: . Smokes. Generally independent with activities of daily living. Family History: Noncontributory. Review of Systems: General: Good health up into this event. Eyes: Denies. Ears, Nose, Throat: No dysarthria, no aphasia. Cardiovascular: Hypertension. Pulmonary: COPD. GI: Negative. : Negative. Musculoskeletal: As alluded to. Neurologic: As noted. Psychiatric: Negative. Endocrine: Negative. Hematologic: Negative. Physical Examination: Vital Signs: 97.7, 60, 18, 145/75. General: He is a pleasant gentleman, lying in bed, in no distress. Awake, alert, oriented to time, person, place, and situation. HEENT: Pupils reactive. Ocular motion full. Nieves full. Facial strength and sensation are normal . Tongue protrudes evenly. Soft palate elevates symmetrically bilaterally. Extremities: Strength full. Sensation intact. Reflexes 1/4 right toe downgoing, left [id number] e amputation. Cerebellar exam demonstrates no ataxia. Gait not tested. Offloading of the stump as recommended by General Surgery. Impression: Syncope, possibly a vagal reaction secondary to pain. He was not particularly orthostat ic. Plan: From a nervous system standpoint, there is no evidence of stroke. The episode does not sound like a seizure. I would not do any additional investigations from a nervous system standpoint. I ag ree with other consultants that once the infection is right under control, the lightheadedness and sy ncopal episodes will likely not reoccur. Thank you for the consult. AFIA Voice ID: [id number] Report ID: [id number]
[2018-02-28] MEDS: VANCOMYCIN 1.25 GM in NA CHLORIDE 0.9% 250 ML IVPB SCH (01:51)
[2018-02-28] MEDS: KCL 20 MEQ/100 mL IVPB 20 MEQ/100 ML BAG IV SCH ×2 (04:33→07:00)
[2018-02-28 04:38] LABS: Absolute Lymphocytes (CBC) 1.6 K/uL (0.7-4.9); Absolute Monocytes 1.1 K/uL (0.1-1.3); Absolute Neutrophil 4.9 K/uL (1.8-8.0); Basophils % 0.4 % (0-1.3); Eosinophils % 1.4 % (0-4.4); Hematocrit 28.8 % (39.6-49.0); Lymphocytes % 20.7 % (15.3-44.8); MCH 33.8 pg (27.0-35.0); MCV 95.6 fL (80-100); MPV 8.9 fL (7.6-11.3); Monocytes % 14.2 % (3.3-12.3); RBC Red Blood Cell Count 3.01 M/uL (4.33-5.43)
[2018-02-28] MEDS ORDERED: NA CHLORIDE 0.9% 500 ML ONE (04:45)
[2018-02-28 04:56] LABS: Magnesium 1.9 mg/dL (1.8-2.4); Potassium 3.6 mmol/L (3.5-5.1)
[2018-02-28] MEDS: METOPROLOL XL 50 MG TAB PO SCH ×2 (05:45→17:19)
[2018-02-28] MEDS: ARFORMOTEROL TARTRATE 15 MCG/2 ML VIAL.NEB NEB SCH ×2 (07:38→19:47)
--- NOTE | 2018-02-28 08:44 | P.PN ---
Subjective Date of Service: 02/27/18 Primary Care Provider: Dr. Kendrick; Surgery-Dr. Archer Chief Complaint: Left below-knee amputation stump pain and syncope Subjective: Tolerating diet Review of Systems General: Fever (nnnno), Chills (no), Sweats (no) Gastrointestinal: Unremarkable Musculoskeletal: As per HPI Integumentary: As per HPI Physical Examination - Vital Signs Temperature: 97.2 F Blood Pressure: 108/56 Pulse: 64 Respirations: 17 Pulse Ox (%): 96 - Physical Exam General: Alert, Oriented x3, Cooperative HEENT: PERRLA, EOMI Neck: Supple Gastrointestinal: Soft and benign, No rebound, No guarding Musculoskeletal: Erythema (non healing wound), Tenderness, Warmth Integumentary: No cyanosis, Erythema, Warmth, Pressure ulcer - Studies Microbiology Data (last 24 hrs): 02/26/18 09:45 Wound - Left Knee Gram Stain - Final Imagings Data: MRI discusseed with Pt, family and Dr James Radiology Medications List Reviewed: Yes Assessment And Plan - Plan off loading conntinue same dressing changes abx PO when d/h f/u at wound healing center after discharge FB at stump discussed with DR james. Scattered Sand size debri chronic possible related to previous sx many years ago away from area of ulcer. No surgical intervention planned as this time.
[2018-02-28] MEDS ORDERED: POTASSIUM 25 MEQ EFFERV TAB PO ONE (09:00)
[2018-02-28] MEDS: FENOFIBRATE 160 MG TAB PO SCH (09:23)
[2018-02-28] MEDS: ASPIRIN EC 81 MG TAB PO SCH (09:23)
[2018-02-28] MEDS: MEDIHONEY 44 ML TOPICAL TUBE TOP SCH (09:23)
[2018-02-28] MEDS: NICOTINE 21 MG/PAT TD SCH (09:23)
--- NOTE | 2018-02-28 10:37 | P.PN ---
Subjective Date of Service: 02/28/18 Primary Care Provider: Dr. Kendrick; Surgery-Dr. Archer Chief Complaint: Left below-knee amputation stump pain and syncope Subjective: Improving Physical Examination - Vital Signs Temperature: 97.2 F Blood Pressure: 108/56 Pulse: 64 Respirations: 17 Pulse Ox (%): 96 - Physical Exam General: Alert, In no apparent distress, Oriented x3, Cooperative HEENT: Atraumatic Neck: Supple Respiratory: Clear to auscultation bilaterally, Normal air movement Cardiovascular: Normal pulses, Regular rate/rhythm Gastrointestinal: Normal bowel sounds, Soft and benign, Non-distended, No tenderness, No masses, No rebound, No guarding Musculoskeletal: No erythema, No warmth, Tenderness (Mild tenderness to the left below-knee amputation stump) Integumentary: No warmth, No cyanosis Neurological: Normal speech, Normal strength at 5/5 x4 extr, Normal tone, Normal affect - Studies Microbiology Data (last 24 hrs): 02/26/18 09:45 Wound - Left Knee Gram Stain - Final Medications List Reviewed: Yes Assessment & Plan - Problems (Diagnosis) (1) Syncope Onset Date: 02/27/18 Current Visit: Yes Status: Acute Plan: Patient with syncopal episode likely from infectious process. Echocardiogram unremarkable. MRI showed no acute stroke. Cardiology has evaluated patient. No cardiac intervention required. Continue treatment of cellulitis of the left below-knee amputation stump. Osteomyelitis has been ruled out. Await to see if wound culture will show specific bacteria and sensitivities. Case discussed at length with infectious disease. Patient likely can go home with oral antibiotic therapy verses IV medication. Surgery has evaluated patient. No surgical intervention needed. Continue current wound care. Offloading on left lower extremity. Patient with history of Coronary artery disease with previous stent placed to the RCA in 2017. Patient with peripheral vascular disease and Carotid arterial disease. Qualifiers: Syncope type: unspecified Qualified Code(s): R55 - Syncope and collapse (2) Chronic renal disease Onset Date: 02/27/18 Current Visit: Yes Status: Acute Plan: Will continue to hold EMILIANO-inhibitor and diuretic therapy. Renal ultrasound shows bilateral renal cysts. Nephrology consulted to further assess. Medications will need to be renally dosed. Qualifiers: Chronic kidney disease stage: stage 2 (mild) Qualified Code(s): N18.2 - Chronic kidney disease, stage 2 (mild) (3) Peripheral vascular disease Onset Date: 02/27/18 Current Visit: Yes Status: Chronic Plan: Will continue with aspirin. Will provide DVT prophylaxis. (4) Carotid arterial disease Onset Date: 02/27/18 Current Visit: Yes Status: Chronic Plan: Will continue with aspirin. Will also continue with his statin medication. Qualifiers: Carotid artery disease type: unspecified Laterality: bilateral Qualified Code(s): I77.9 - Disorder of arteries and arterioles, unspecified (5) Hypertension Onset Date: 02/27/18 Current Visit: Yes Status: Chronic Plan: Continue make adjustments in his medications. Will hold EMILIANO-inhibitor and diuretic therapy due to chronic renal disease. Qualifiers: Hypertension type: essential hypertension Qualified Code(s): I10 - Essential (primary) hypertension (6) Hyperlipidemia Onset Date: 02/27/18 Current Visit: Yes Status: Chronic Plan: Will continue with statin medication. Qualifiers: Hyperlipidemia type: unspecified Qualified Code(s): E78.5 - Hyperlipidemia , unspecified (7) Tobacco abuse Onset Date: 02/27/18 Current Visit: Yes Status: Chronic Plan: Will provide nicotine patch. Cessation addressed in detail. (8) COPD (chronic obstructive pulmonary disease) Onset Date: 02/27/18 Current Visit: Yes Status: Suspected Plan: Patient may have underlying COPD. Continue with COPD treatment. Patient will need medication at discharge. Qualifiers: COPD type: chronic bronchitis Chronic bronchitis type: unspecified Qualified Code(s): J42 - Unspecified chronic bronchitis (9) CAD (coronary artery disease) Onset Date: 08/18/16 Current Visit: No Status: Chronic Plan: Continue as above. (10) Anemia Onset Date: 02/27/18 Current Visit: Yes Status: Chronic Plan: This is likely chronic from chronic renal disease. Will monitor closely. Qualifiers: Anemia type: other cause Other causes of anemia: chronic disease, other Qualified Code(s): D63.8 - Anemia in other chronic diseases classified elsewhere (11) Cellulitis Current Visit: Yes Status: Acute Plan: Left below-knee amputation cellulitis noted. Initial x-ray showed possible osteomyelitis. This was ruled out with MRI. MRI reviewed with radiology. No osteomyelitis noted. Need for surgical intervention. Await wound culture results. Possible discharge to with oral antibiotic therapy verses IV medication. Qualifiers: Site of cellulitis: extremity Site of cellulitis of extremity: lower extremity Laterality: left Qualified Code(s): L03.116 - Cellulitis of left lower limb Discharge Plan: Home Plan to discharge in: 24 Hours Time Spent Managing Pts Care (In Minutes): 55
[2018-02-28] MEDS ORDERED: POTASSIUM CL SA 10 MEQ TAB PO ONE (11:20)
--- NOTE | 2018-02-28 16:03 | PN ---
Date of Progress Note: 02/28/2018 Subjective: The patient doing good. No event, no shortness of breath. Objective: Vital Signs: Blood pressure 108/56, pulse of 64. Afebrile. The patient had urine outpu t of 1200. Chest: Clear to auscultation. Heart: S1, S2. Systolic murmur. Abdomen: Soft. Nontender. Extremity: Left below-knee amputation. Laboratory Data: WBC 7.8, H and H 10.2/28.8. Sodium 140, potassium 3.6, bicarb 26, BUN 21, creatini ne 1.2, calcium of 8. Magnesium 1.9. Medications: Current medications the patient on include, Zosyn 4.5, vancomycin, nicotine, Lovenox, a torvastatin, fenofibrate, gabapentin, Zofran. Assessment And Plan: 1.Acute kidney injury secondary to prerenal. Continue to recover, plateau. 2.Syncope. Follow up with the Cardiology. 3.Peripheral vascular disease, stable. 4.Cellulitis of the stump. Continue current antibiotic. 5.Hypokalemia, will supplement oral. DAMARIS/CHRISTOPHER Voice ID: [id number] Report ID: [id number]
[2018-02-28] MEDS: ENOXAPARIN 40 MG/0.4 ML SQ SCH (16:42)
[2018-02-28] MEDS: GABAPENTIN 300 MG CAP PO SCH (22:13)
[2018-02-28] MEDS: ATORVASTATIN 80 MG TAB PO SCH (22:13)
--- NOTE | 2018-03-01 00:12 | PN ---
Date of Progress Note: 02/27/2018 Mr. Werner was admitted to Dr. Luna. He has a history of CAD, status post stent in August, has a left BKA aortobifem. He is here for sepsis, osteomyelitis, and hypotension secondary to anjel t. An echocardiogram was ordered and it was normal without any wall motion abnormalities or effusion . The patient is clear for surgery if needed or indicated. We will sign off and be available for qu estions, otherwise. LELE/CHRISTOPHER Voice ID: [id number] Report ID: [id number]
[2018-03-01] MEDS: PIPER/TAZO/NS 4.5gm 4.5 GM/100 ML BAG IVPB SCH ×2 (00:24→10:37)
[2018-03-01] MEDS ORDERED: VANCOMYCIN 1.25 GM in NA CHLORIDE 0.9% 250 ML IVPB SCH (02:00)
[2018-03-01 03:18] VITALS: O2SAT 98
[2018-03-01] MEDS: METOPROLOL XL 50 MG TAB PO SCH (05:47)
[2018-03-01 06:14] LABS: Absolute Lymphocytes (CBC) 1.1 K/uL (0.7-4.9); Absolute Neutrophil 4.2 K/uL (1.8-8.0); Basophils % 0.5 % (0-1.3); Eosinophils % 2.7 % (0-4.4); Hematocrit 29.7 % (39.6-49.0); Lymphocytes % 17.3 % (15.3-44.8); MCH 33.3 pg (27.0-35.0); MCV 95.6 fL (80-100); Monocytes % 14.7 % (3.3-12.3); RBC Red Blood Cell Count 3.11 M/uL (4.33-5.43)
[2018-03-01 06:35] LABS: Magnesium 1.9 mg/dL (1.8-2.4); Potassium 3.7 mmol/L (3.5-5.1)
[2018-03-01] MEDS: ARFORMOTEROL TARTRATE 15 MCG/2 ML VIAL.NEB NEB SCH (07:37)
[2018-03-01 08:58] VITALS: BP 142/74; TEMP 97.4
[2018-03-01] MEDS ORDERED: POTASSIUM 25 MEQ EFFERV TAB PO ONE (09:00)
[2018-03-01] MEDS: MEDIHONEY 44 ML TOPICAL TUBE TOP SCH (09:00)
[2018-03-01] MEDS: NICOTINE 21 MG/PAT TD SCH (09:00)
--- NOTE | 2018-03-01 09:55 | P.DS ---
Admission Date: 02/26/18 Discharge Date: 03/01/18 Primary Care Provider: Dr. Kendrick; Surgery-Dr. Archer Disposition: DC HOME/HOME HEALTH CARE Discharge Condition: GOOD Reason for Admission: Left below-knee amputation stump pain and syncope Consultations: Cardiology-Dr. Nova Nephrology-Dr. Muhammad Infectious disease-Dr. Beebe Surgery-Dr. Archer Neurology-Dr. Russ GI-Dr. Hui Procedures: Knee MRI: FINDINGS: The medial meniscus is intact. The lateral meniscus is intact. The ACL and PCL are intact. The collateral ligaments are intact. Patellar and quadriceps tendons are normal. Below the knee amputation noted. Blooming artifact is seen at the stump level likely attributable to metal in the region. No marrow replacing process is seen within the stump to indicate osteomyelitis. The skin and subcutaneous tissues about the stump are thickened and mildly irregular. A small joint effusion is seen. IMPRESSION: No definitive evidence of stump osteomyelitis. Assessment in the region is mildly limited by blooming artifact but felt to be of diagnostic quality. Brain MRI: COMPARISON: MRA Head Wo Cont dated 02/26/2018; Brain Wo Cont dated 10/09/2017 TECHNIQUE: Multi-sequence, multiplanar MR imaging of the brain was performed without contrast. FINDINGS: No intracranial hemorrhage, hydrocephalus or extra-axial fluid collections.Moderate confluent T2/FLAIR hyperintensity in the periventricular and deep white matter is present compatible with chronic microvascular ischemic changes. No edema or shift of midline structures. No findings to suspect brain mass. DWI is negative for acute CVA. Midline structures are normally formed. Mastoid air cells and paranasal sinuses are clear. IMPRESSION: Negative for acute CVA or other acute intracranial abnormality. Brain MRA: FINDINGS: 3D noncontrast [id number] MR angiography of the [place] was performed. No aneurysm, flow-limiting stenosis or vascular malformation is seen. Forward flow seen in both vertebral arteries slightly larger on the left. The visualized dural venous sinuses appear patent. IMPRESSION: No significant flow abnormality of the [place] is identified. Modified barium swallow: TECHNIQUE: The patient was given liquid, semi-solid and solid forms of barium. Lateral view fluoroscopic imaging was performed in conjunction with speech pathology service. FINDINGS: LARYNGEAL PENETRATION CLEARED MILD WITH STRAW SIP PHARYNGEAL RESIDUE PYRIFORM SIGNIFICANT ESOPHAGEAL STASIS WITH SIGNIFICANT RETROGRADE FLOW INTO THE PYRIFORM SINUSES. Total fluoroscopy time: 4 minutes 55 seconds. Echocardiogram: Ejection fraction within normal range LEFT VENTRICULAR WALL MOTION: MILD INFERIOR HYPOKINESIS. DOPPLER/COLOR FLOW: MILD TRICUSPID REGURGITATION. NORMAL RIGHT VENTRICULAR SYSTOLIC PRESSURE. COMMENTS: NORMAL LEFT VENTRICULAR EJECTION FRACTION WITH WALL MOTION ABNORMALITY. MILD TRICUSPID REGURGITATION. Renal ultrasound: COMPARISON: No comparisons FINDINGS: Both kidneys are normal in size, shape and echotexture. The right kidney measures 9.7 x 5.4 x 4.7 cm. No hydronephrosis, focal mass or perinephric fluid. Multiple benign-appearing cysts are present. The left kidney measures 10.6 x 5.5 x 4.8 cm. No hydronephrosis, focal mass or perinephric fluid. Multiple benign-appearing cysts are present argest measuring 4 cm. The urinary bladder is incompletely distended without gross abnormality seen. IMPRESSION: Multiple bilateral renal cysts are present, benign in appearance. - Problems (1) Syncope Onset Date: 02/27/18 Current Visit: Yes Status: Resolved Qualifiers: Syncope type: unspecified Qualified Code(s): R55 - Syncope and collapse (2) Chronic renal disease Onset Date: 02/27/18 Current Visit: Yes Status: Acute Qualifiers: Chronic kidney disease stage: stage 2 (mild) Qualified Code(s): N18.2 - Chronic kidney disease, stage 2 (mild) (3) Peripheral vascular disease Onset Date: 02/27/18 Current Visit: Yes Status: Chronic (4) Carotid arterial disease Onset Date: 02/27/18 Current Visit: Yes Status: Chronic Qualifiers: Carotid artery disease type: unspecified Laterality: bilateral Qualified Code(s): I77.9 - Disorder of arteries and arterioles, unspecified (5) Hypertension Onset Date: 02/27/18 Current Visit: Yes Status: Chronic Qualifiers: Hypertension type: essential hypertension Qualified Code(s): I10 - Essential (primary) hypertension (6) Hyperlipidemia Onset Date: 02/27/18 Current Visit: Yes Status: Chronic Qualifiers: Hyperlipidemia type: unspecified Qualified Code(s): E78.5 - Hyperlipidemia , unspecified (7) Tobacco abuse Onset Date: 02/27/18 Current Visit: Yes Status: Chronic (8) COPD (chronic obstructive pulmonary disease) Onset Date: 02/27/18 Current Visit: Yes Status: Suspected Qualifiers: COPD type: chronic bronchitis Chronic bronchitis type: unspecified Qualified Code(s): J42 - Unspecified chronic bronchitis (9) CAD (coronary artery disease) Onset Date: 08/18/16 Current Visit: No Status: Chronic (10) Anemia Onset Date: 02/27/18 Current Visit: Yes Status: Chronic Qualifiers: Anemia type: other cause Other causes of anemia: chronic disease, other Qualified Code(s): D63.8 - Anemia in other chronic diseases classified elsewhere (11) Cellulitis Current Visit: Yes Status: Acute Qualifiers: Site of cellulitis: extremity Site of cellulitis of extremity: lower extremity Laterality: left Qualified Code(s): L03.116 - Cellulitis of left lower limb (12) Dysphagia Current Visit: Yes Status: Acute Brief History of Present Illness: 77-year-old male present emergency room after he started to have some pain to the left stump of his below-knee amputation. This started several days ago. He noted some exudate as well. No fever, chills noted. Last night pain was worse. He reports that this pain comes and goes. He was treated for an ulcer about 2-3 months ago by surgery. About 6 months ago, patient was given a new prosthetic. Patient also reports a syncopal episode that occurred this morning. This lasted for several seconds. It came on suddenly. He denied any chest pain, shortness of breath, he reports some wheezing from time to time. No significant headaches or dizziness noted. He had been feeling weak during this time. He denied any significant slurred speech or weakness to the lower extremities. Patient has past medical history of hypertension, hyperlipidemia, COPD, tobacco abuse, peripheral vascular disease. In the ER patient was evaluated. White count 13.0, hemoglobin 12. Sodium 137, potassium 3.5, BUN of 32, creatinine 1.6 with a GFR 42. Glucose 130. Head CT showed no acute abnormality. Chest x-ray showed no acute changes. Carotid Doppler showed moderate plaque. X-ray of the left knee showed possible medial aspect stump osteomyelitis. Patient was started on IV antibiotic therapy. Patient admitted for further evaluation. When I saw the patient the ER, he appeared comfortable. He did not appear in any respiratory distress. He did report some fatigue. Family reports that he has not been eating appropriately. He has had poor oral intake. The patient further reports that he had a heart catheterization done last year in August 2016. A stent to the right RCA was done. He also reports that he has been seen by a neurology recently for dizziness. He has been given medication for this. His last MRI was done October of 2017 which was unremarkable. Hospital Course: Patient presented with multiple complaints. Primary complaint was pain to the left below-knee amputation stump. There was some concern for osteomyelitis initially with x-ray. MRI performed showed no osteomyelitis. Patient was treated for cellulitis. Cultures were obtained. Patient evaluated by infectious disease and surgery. Surgery recommended no surgical intervention. Wound culture positive for Proteus mirabilis and Moraxella catarrhalis. Patient has responded to antibiotic therapy well. At discharge he will continue with Augmentin 500 mg 1 pill twice daily for 10 days. Patient will continue with current wound care. Patient will need to follow up with [facility] his care. No weight-bearing to the left stump. This includes not using his prosthesis until wound has completely healed. This can be further addressed by surgery. Patient also presented with syncope likely from infection, hypotension and orthostatics hypotension. Patient had full workup done including MRI, MRA brain , carotid Doppler and echocardiogram. MRI/MRA showed no stroke. Echocardiogram unremarkable. Patient has significant peripheral vascular disease. Patient was evaluated by cardiology and neurology. No further intervention was required. Blood pressure medication adjusted during his stay. Patient will continue with aspirin 325 mg daily and Plavix 75 mg daily. Patient has hypertension. Medications have been adjusted due to syncope, renal insufficiency and low blood pressure. Losartan/Hydrochlorothiazide has been discontinued. At discharge, Patient will continue with metoprolol 50 mg 1 pill twice daily only. Recommendation is to maintain blood pressures less 150/80. Further adjustment can be done by his PCP. Patient has chronic renal disease. Patient seen and evaluated by nephrology. Renal ultrasound shows bilateral renal cysts. Patient has polycystic renal disease. Renal function stable at discharge. This can be followed up and monitored by nephrology as an outpatient. Recommendation to recheck lab-BMP in 1 week to monitor his progress. Recommend shoe for the patient follow up with Nephrology in 2-4 weeks to monitor his progress. There was some concern that the patient had some dysphagia. Patient had modified barium swallow. No aspiration was noted but esophageal stasis was identified. GI was consulted. GI recommended EGD. This will be done as an outpatient. Recommendation for the patient follow up with GI as an outpatient for follow up EGD. Patient will continue with Protonix 40 mg 1 pill once daily. Aspiration precaution will be provided. Patient has hyperlipidemia. Patient will continue with Lipitor 80 mg daily and fenofibrate 160 mg daily. Tobacco cessation education will be provided. Patient may have underlying COPD. Recommendation is for the patient to follow up with pulmonology as an outpatient and consider pulmonary function test to further assess. Patient has anemia likely of chronic disease to recheck CBC in 2-4 weeks to monitor his progress. Patient may require a EGD and colonoscopy in the future to further assess. This can be done by GI. Vital Signs/Physical Exam: Temp Pulse Resp BP Pulse Ox 97.4 F 61 18 142/74 H 96 03/01/18 08:00 03/01/18 08:00 03/01/18 08:00 03/01/18 08:00 03/01/18 08:00 General: Alert, In no apparent distress, Oriented x3, Cooperative HEENT: Atraumatic Neck: Supple Respiratory: Clear to auscultation bilaterally, Normal air movement Cardiovascular: Normal pulses, Regular rate/rhythm Gastrointestinal: Normal bowel sounds, Soft and benign, Non-distended, No tenderness, No masses, No rebound, No guarding Musculoskeletal: No erythema, No tenderness, No warmth Integumentary: No tenderness/swelling (No more tenderness to the left stump), No erythema, No warmth, No cyanosis Neurological: Normal speech, Normal strength at 5/5 x4 extr, Normal tone, Normal affect Laboratory Data at Discharge: WBC 6.5 K/uL (4.3-10.9) D 03/01/18 06:02 Hgb 10.4 g/dL (13.6-17.9) L 03/01/18 06:02 Hct 29.7 % (39.6-49.0) L 03/01/18 06:02 Plt Count 182 K/uL (152-406) 03/01/18 06:02 Sodium 139 mmol/L (136-145) 03/01/18 06:02 Potassium 3.7 mmol/L (3.5-5.1) 03/01/18 06:02 BUN 15 mg/dL (7-18) 03/01/18 06:02 Creatinine 1.10 mg/dL (0.55-1.3) 03/01/18 06:02 Glucose 82 mg/dL (74-106) 03/01/18 06:02 Magnesium 1.9 mg/dL (1.8-2.4) 03/01/18 06:02 Troponin I 0.04 ng/mL (0.0-0.045) 02/27/18 03:24 Triglycerides 118 mg/dL (<150) 02/27/18 03:24 Cholesterol 88 mg/dL (<200) 02/27/18 03:24 HDL Cholesterol 22 mg/dL (40-60) L 02/27/18 03:24 Cholesterol/HDL Ratio 4.00 02/27/18 03:24 Home Medications: Vitamin B Complex [B Complex] 1 each PO DAILY 08/17/16 Atorvastatin Calcium [Lipitor] 80 mg PO BEDTIME tab 08/18/16 Fenofibrate [Tricor*] 160 mg PO DAILY AT SUPPER tab 08/18/16 Metoprolol Succinate [Toprol Xl*] 50 mg PO BID 6AM 6PM tab 08/18/16 Aspirin [Aspirin EC 325 MG] 325 mg PO DAILY 02/26/18 Clopidogrel Bisulfate [Plavix*] 75 mg PO BEDTIME 02/26/18 Amoxicillin/Potassium Clav [Augmentin 500-125 Tablet] 1 each PO BID #20 tablet 03/01/18 Medihoney [Medihoney Woundcare Gel*] 1 appl TOP DAILY #1 tube 03/01/18 Pantoprazole [Protonix Tab] 40 mg PO DAILY #30 tab 03/01/18 New Medications: Amoxicillin/Potassium Clav [Augmentin 500-125 Tablet] 1 each PO BID #20 tablet Medihoney [Medihoney Woundcare Gel*] 1 appl TOP DAILY #1 tube Pantoprazole [Protonix Tab] 40 mg PO DAILY #30 tab Patient Discharge Instructions: 1. Patient will need to follow up his PCP in 1 week to follow up this hospitalization. 2. Patient presented with multiple complaints. Primary complaint was pain to the left below-knee amputation stump. There was some concern for osteomyelitis initially with x-ray. MRI performed showed no osteomyelitis. Patient was treated for cellulitis. Cultures were obtained. Patient evaluated by infectious disease and surgery. Surgery recommended no surgical intervention. Wound culture positive for Proteus mirabilis and Moraxella catarrhalis. At discharge he will continue with Augmentin 500 mg 1 pill twice daily for 10 days. Patient will continue with current wound care including med honey to be applied daily. Patient will need to follow up with surgery [facility] to continue his care. No weight-bearing to the left stump. This includes not using his prosthesis until wound has completely healed. This can be further addressed by surgery. 3. Patient also presented with syncope likely from infection, hypotension and orthostatic hypotension. Patient had full workup done including MRI, MRA brain, carotid Doppler and echocardiogram. MRI/MRA showed no stroke. Echocardiogram unremarkable. Carotid Doppler showed no significant stenosis. Patient has significant peripheral vascular disease/CAD. Patient was evaluated by cardiology and neurology. No further intervention was required. Echocardiogram was within normal range. At discharge, Patient will continue with aspirin 325 mg daily and Plavix 75 mg daily. Blood pressure medication adjusted. 4. Patient has hypertension. Medications have been adjusted due to syncope, low blood pressure and renal insufficiency. Losartan/ Hydrochlorothiazide has been discontinued. At discharge, Patient will continue with metoprolol XL 50 mg 1 pill twice daily only. Recommendation is to maintain blood pressures less 150/80. Further adjustment can be done by his PCP. Patient is to monitor for orthostatic hypotension. 5. Patient has chronic renal disease. Patient seen and evaluated by nephrology. Renal ultrasound shows bilateral renal cysts. Patient has polycystic renal disease. Renal function stable at discharge. This can be followed up and monitored by nephrology as an outpatient. Recommendation to recheck lab-BMP in 1 week to monitor his progress. Recommend shoe for the patient follow up with Nephrology in 2-4 weeks to monitor his progress. 6. There was some concern that the patient had some dysphagia. Patient had modified barium swallow and evaluated by speech specialist. No aspiration was noted but esophageal stasis was identified. GI was consulted. GI recommended EGD. This will be done as an outpatient. Recommendation for the patient follow up with GI as an outpatient for follow up EGD. Patient will continue with Protonix 40 mg 1 pill once daily. Aspiration precaution will be provided. 7. Patient has hyperlipidemia. Patient will continue with Lipitor 80 mg daily and fenofibrate 160 mg daily. 8. Patient has anemia likely of chronic disease. Recommendation to recheck lab-CBC in 2-4 weeks to monitor his progress. Patient may require a EGD, colonoscopy in the future to further assess. 9. Tobacco cessation education will be provided. Patient may have underlying COPD. Recommendation is for the patient to follow up with pulmonology as an outpatient and consider pulmonary function test to further assess. Diet: AHA Activity: Fall precautions Time spent managing pt's care (in minutes): 55
[2018-03-01] MEDS: FENOFIBRATE 160 MG TAB PO SCH (10:38)
[2018-03-01] MEDS: ASPIRIN EC 81 MG TAB PO SCH (10:38)
--- NOTE | 2018-03-01 16:53 | PN ---
Date of Progress Note: 03/01/2018 NEPHROLOGY FOLLOWUP NOTE Subjective: The patient doing well. The patient was admitted with cellulitis. Physical Examination: Vital Signs: Blood pressure of 142/74, pulse of 61, afebrile. The patient had good urine output. Chest: Clear to auscultation. Heart: S1, S2. Regular. Abdomen: Soft, nontender. Extremities: Left below-knee amputation. No erythema. Laboratory Data: H and H 10.4/29.7. Sodium 139, potassium 3.7, bicarb 25, BUN 15, creatinine 1.1. GFR of 65, magnesium 1.9. Medications: Current medications include: 1.Vancomycin. 2.Zosyn. 3.Aspirin. 4.Breathing treatment. 5.Atorvastatin. 6.Metoprolol 50 b.i.d. 7.Gabapentin. 8.Zofran. Assessment And Plan: 1.Acute kidney injury secondary to prerenal, normal size kidney, proteinuric, non-nephrotic, resolve d. 2.Hypertension, controlled, optimal. Continue current medication. 3.Urinary tract infection. Urine culture was negative. 4.Cellulitis with Proteus mirabilis and Moraxella, sensitive to Augmentin. We will follow up with [facility]. Continue current antibiotic. Consider Augmentin. The patient cleared from the Renal standpoint for discharge planning. To follow up in the office in 2-[address] Freed. DAMARIS/CHRISTOPHER Voice ID: [id number] Report ID: [id number]
== END 2018-03-01 12:15 | disposition home or self-care (01) | DRG 565 ==
LOC: ER 07:41 → ERHOLD 10:51 → 4TH 12:05
PROVIDERS: ADMIT Family Medicine; ATTEND Family Medicine
DX: T87.44 Infection of amputation stump, left lower extremity (principal); L03.116 Cellulitis of left lower limb; N17.9 Acute kidney failure, unspecified; N39.0 Urinary tract infection, site not specified; Q61.3 Polycystic kidney, unspecified; B96.4 Proteus (mirabilis) (morganii) as the cause of diseases classified elsewhere; B96.89 Other specified bacterial agents as the cause of diseases classified elsewhere; I12.9 Hypertensive chronic kidney disease with stage 1 through stage 4 chronic kidney disease, or unspecified chronic kidney disease; I95.1 Orthostatic hypotension; N18.3 Chronic kidney disease, stage 3 (moderate); I73.9 Peripheral vascular disease, unspecified; I65.23 Occlusion and stenosis of bilateral carotid arteries; E78.5 Hyperlipidemia, unspecified; R55 Syncope and collapse; J44.9 Chronic obstructive pulmonary disease, unspecified; E86.0 Dehydration; E87.6 Hypokalemia; F17.210 Nicotine dependence, cigarettes, uncomplicated; D63.8 Anemia in other chronic diseases classified elsewhere; R13.10 Dysphagia, unspecified; I25.10 Atherosclerotic heart disease of native coronary artery without angina pectoris; Z89.512 Acquired absence of left leg below knee; Z95.5 Presence of coronary angioplasty implant and graft; Z79.02 Long term (current) use of antithrombotics/antiplatelets; Z79.82 Long term (current) use of aspirin
CPT/HCPCS: 36415; 70450; 70544; 70551; 71045; 74230; 76770; 80048; 80061; 80202; 81003; 81015; 82550; 82553; 83735; 84132; 84145; 84439; 84443; 84484; 85025; 85652; 86140; 87040; 87070; 87077; 87086; 87088; 87184; 87186; 87205; 93005; 93306; 93880; 96361; 96365; 96375; 97163; 99285; J1650; J2543; J3010; J3370; J3475; J7030; J7605

== ENCOUNTER 2018-03-03 09:48 | Emergency (ER) | payer OTHER ==
[2018-03-03 10:56] LABS: Absolute Lymphocytes (CBC) 0.5 K/uL (0.7-4.9); Absolute Monocytes 0.7 K/uL (0.1-1.3); Absolute Neutrophil 5.6 K/uL (1.8-8.0); Basophils % 0.6 % (0-1.3); Eosinophils % 0.4 % (0-4.4); Hematocrit 33.2 % (39.6-49.0); Lymphocytes % 7.5 % (15.3-44.8); MCH 33.2 pg (27.0-35.0); MCV 94.3 fL (80-100); Monocytes % 9.9 % (3.3-12.3); RBC Red Blood Cell Count 3.52 M/uL (4.33-5.43)
--- NOTE | 2018-03-03 12:02 | ER ---
Nurse's Notes [facility] Name: Charan Werner Age: 77 yrs Sex: Male : 1940 Arrival Date: 03/03/2018 Time: 09:51 Bed 17 Private MD: Ezequiel Luna Diagnosis: Acute Urinary Retention Presentation: 03/03 09:56 Presenting complaint: Patient states: urinary retention that began last night. Pt ss reports he was recently admitted to the hospital for "a bad vein in leg", and this happened also during his admission. Transition of care: patient was not received from another setting of care. Onset of symptoms was March 02, 2018. Risk Assessment: Do you want to hurt yourself or someone else? Patient reports no desire to harm self or others. Initial Sepsis Screen: Does the patient meet any 2 criteria? No. Patient's initial sepsis screen is negative. Does the patient have a suspected source of infection? No. Patient's initial sepsis screen is negative. Care prior to arrival: None. 09:56 Method Of Arrival: Wheelchair ss 09:56 Acuity: BENOIT 3 ss Historical: - Allergies: :59 No Known Allergies; ss - Home Meds: 10:00 Laura 180 mg Oral tab 1 tab once daily [Active]; atorvastatin 80 mg Oral tab 1 tab rb1 once daily [Active]; Peggy Aspirin 81 mg Oral once daily [Active]; fenofibrate 145 MG Oral once daily [Active]; gabapentin 600 mg Oral tab nightly [Active]; Klor-Con 10 10 mEq Oral TbER 1 tab once daily [Active]; losartan-hydrochlorothiazide 100-25 mg Oral tab 1 tab once daily [Active]; metoprolol succinate 50 mg Oral Tb24 twice a day [Active]; PreserVision AREDS 2 [id number] [id number]-mg Oral cap twice a day [Active]; Slo-Niacin 750 mg Oral TbER once daily [Active]; - PMHx: 09:59 Myocardial infarction; throat cancer; ss - PSHx: :59 L BKA; Tonsillectomy; ss - Immunization history:: Adult Immunizations up to date. - Social history:: Smoking status: Patient uses tobacco products, smokes one pack cigarettes per day. - Ebola Screening: : Patient denies exposure to infectious person Patient denies travel to an Ebola-affected area in the 21 days before illness onset. - Family history:: not pertinent. - Hospitalizations: : No recent hospitalization is reported. Screenin:00 Abuse screen: Denies threats or abuse. Nutritional screening: No deficits noted. rb1 Tuberculosis screening: No symptoms or risk factors identified. Fall Risk No fall in past 12 months (0 pts). Secondary diagnosis (15 points) impaired mobility, IV access (20 points). Ambulatory Aid- Crutches/Cane/Walker (15 pts). Gait- Impaired (20 pts.). Mental Status- Oriented to own ability (0 pts). Total Escobedo Fall Scale indicates High Risk Score (45 or more points). Fall prevention measures have been instituted. Side Rails Up X 2 Placed Close to Nursing Station 1:1 Attendant Assigned Frequent Obs/Assessments Occuring Family Present and informed to notify staff if the need to leave the bedside As available patient and family educated on Fall Prevention Program and Strategies. Assessment: 10:00 General: Appears uncomfortable, Behavior is calm, cooperative, Denies fever. Pain: rb1 Complains of pain in suprapubic area Pain currently is 5 out of 10 on a pain scale. Pain began last night. Neuro: Level of Consciousness is awake, alert, obeys commands, Oriented to person, place, time, situation. Cardiovascular: Capillary refill < 3 seconds is brisk in bilateral fingers. Respiratory: Airway is patent Respiratory effort is even, unlabored, Respiratory pattern is regular, symmetrical. GI: No signs and/or symptoms were reported involving the gastrointestinal system. : Reports inability to void, since last night. Derm: Skin is pink, warm \\T\\ dry. Musculoskeletal: Amputation of BKA bandage in place, pt. was recently admitted for an infection in his leg. discharged last per pt. report. 11:00 Reassessment: Patient appears in no apparent distress at this time. Patient and/or rb1 family updated on plan of care and expected duration. Pain level reassessed. Patient is alert, oriented x 3, equal unlabored respirations, skin warm/dry/pink. Family at bedside. Patient states feeling better. 12:00 Reassessment: Patient appears in no apparent distress at this time. No changes from rb1 previously documented assessment. 12:24 Reassessment: Pt. educated on Leg bag catheter, verbalized understanding. rb1 Vital Signs: 09:59 BP 165 / 94; Pulse 68; Resp 20; Temp 98.0(O); Pulse Ox 99% on R/A; Weight 64.86 kg; ss Height 5 ft. 8 in. (172.72 cm); Pain 5/10; 10:58 BP 152 / 87; Pulse 66; Resp 17; Pulse Ox 100% on R/A; rb1 11:58 BP 124 / 71; Pulse 52; Resp 17; Pulse Ox 97% on R/A; rb1 09:59 Body Mass Index 21.74 (64.86 kg, 172.72 cm) ED Course: 09:51 Patient arrived in ED. sb2 09:51 Ezequiel Luna DO is Private Physician. sb2 09:55 Jared Corrales MD is Attending Physician. wa 09:58 Triage completed. ss 09:59 Arm band placed on right wrist. ss 10:00 Patient has correct armband on for positive identification. Placed in gown. Bed in low rb1 position. Call light in reach. Side rails up X 1. Pulse ox on. NIBP on. Warm blanket given. 10:07 Bladder scan completed. 870, image/ results placed on paper chart as well. ss 10:09 Julieta Hernandez, RN is Primary Nurse. rb1 10:30 Inserted saline lock: 22 gauge in right antecubital area, using aseptic technique. rb1 Blood collected. 12:00 Ruth Ocampo MD is Referral Physician. wa 12:27 No provider procedures requiring assistance completed. IV discontinued, intact, rb1 bleeding controlled, No redness/swelling at site. Pressure dressing applied. Administered Medications: No medications were administered Intake: 10:30 Vincent was clamped after 500 ml output. rb1 10:45 Vincent was unclamped and 300 ml output noted at this time. Pt. urine flow has decreased rb1 so the Vincent was left unclamped. Output: 10:30 Urine: 500ml (Vincent); Total: 500ml. rb1 10:45 Urine: 300ml (Vincent); Total: 800ml. rb1 10:30 Vincent was clamped after 500 ml output. rb1 10:45 Vincent was unclamped and 300 ml output noted at this time. Pt. urine flow has decreased rb1 so the Vincent was left unclamped. Outcome: 12:01 Discharge ordered by . wa 12: Discharged to home via wheelchair, with family. rb1 12: Condition: stable 12: Discharge instructions given to patient, Instructed on discharge instructions, follow up and referral plans. Demonstrated understanding of instructions, follow-up care, Prescriptions given X none 12:28 Patient left the ED. rb1 Signatures: Kirsten Wells RN RN ss Julieta Hernandez RN RN rb1 Jared Corrales MD MD wa Billeau, Sheri sb2
--- NOTE | 2018-03-03 12:02 | EDPHYS ---
Physician Documentation [facility] Name: Charan Werner Age: 77 yrs Sex: Male : 1940 Arrival Date: 03/03/2018 Time: 09:51 Bed 17 Private MD: Ezequiel Luna ED Physician Jared Corrales HPI: 03/03 11:48 This 77 yrs old Male presents to ER via Wheelchair with complaints of Urinary wa Retention. 11:48 The patient presents with urinary symptoms, retention. Onset: The symptoms/episode wa began/occurred last night. Modifying factors: The symptoms are alleviated by nothing, the symptoms are aggravated by nothing. Associated signs and symptoms: Pertinent positives: suprapubic pain, Pertinent negatives: constipation, diarrhea, dysuria, fever, hematuria, nausea, vomiting. Severity of symptoms: At their worst the symptoms were moderate, in the emergency department the symptoms are unchanged. The patient has experienced a previous episode, just d/c'd from this h[facility] for leg wound infection. had the same symptoms while in the hospital that required a catheter. The patient has been recently seen by a physician: just discharged from this hospital 2 days ago. Historical: - Allergies: 09:59 No Known Allergies; ss - Home Meds: 10:00 Laura 180 mg Oral tab 1 tab once daily [Active]; atorvastatin 80 mg Oral tab 1 tab rb1 once daily [Active]; Peggy Aspirin 81 mg Oral once daily [Active]; fenofibrate 145 MG Oral once daily [Active]; gabapentin 600 mg Oral tab nightly [Active]; Klor-Con 10 10 mEq Oral TbER 1 tab once daily [Active]; losartan-hydrochlorothiazide 100-25 mg Oral tab 1 tab once daily [Active]; metoprolol succinate 50 mg Oral Tb24 twice a day [Active]; PreserVision AREDS 2 118-401-63-1 [id number]-[id number]-mg Oral cap twice a day [Active]; Slo-Niacin 750 mg Oral TbER once daily [Active]; - PMHx: 09:59 Myocardial infarction; throat cancer; ss - 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 - Social history:: Smoking status: Patient uses tobacco products, smokes one pack cigarettes per day. - Ebola Screening: : Patient denies exposure to infectious person Patient denies travel to an Ebola-affected area in the 21 days before illness onset. - Family history:: not pertinent. - Hospitalizations: : No recent hospitalization is reported. ROS: 11:56 Constitutional: Negative for fever, chills, and weight loss, Eyes: Negative for injury, wa pain, redness, and discharge, ENT: Negative for injury, pain, and discharge, Neck: Negative for injury, pain, and swelling, Cardiovascular: Negative for chest pain, palpitations, and edema, Respiratory: Negative for shortness of breath, cough, wheezing, and pleuritic chest pain, Abdomen/GI: Negative for abdominal pain, nausea, vomiting, diarrhea, and constipation, Back: Negative for injury and pain, MS/Extremity: Negative for injury and deformity, Skin: Negative for injury, rash, and discoloration, Neuro: Negative for headache, weakness, numbness, tingling, and seizure, Psych: Negative for depression, anxiety, suicide ideation, homicidal ideation, and hallucinations. 11:56 : Positive for urinary symptoms, retention. difficulty voiding. 11:56 All other systems are negative. Exam: 11:57 Constitutional: This is a well developed, well nourished patient who is awake, alert, wa and in no acute distress. Head/Face: Normocephalic, atraumatic. Eyes: Pupils equal round and reactive to light, extra-ocular motions intact. Lids and lashes normal. Conjunctiva and sclera are non-icteric and not injected. Cornea within normal limits. Periorbital areas with no swelling, redness, or edema. ENT: Nares patent. No nasal discharge, no septal abnormalities noted. Tympanic membranes are normal and external auditory canals are clear. Oropharynx with no redness, swelling, or masses, exudates, or evidence of obstruction, uvula midline. Mucous membranes moist. Neck: Trachea midline, no thyromegaly or masses palpated, and no cervical lymphadenopathy. Supple, full range of motion without nuchal rigidity, or vertebral point tenderness. No Meningismus. Chest/axilla: Normal chest wall appearance and motion. Nontender with no deformity. No lesions are appreciated. Cardiovascular: Regular rate and rhythm with a normal S1 and S2. No gallops, murmurs, or rubs. Normal PMI, no JVD. No pulse deficits. Respiratory: Lungs have equal breath sounds bilaterally, clear to auscultation and percussion. No rales, rhonchi or wheezes noted. No increased work of breathing, no retractions or nasal flaring. Abdomen/GI: Soft, non-tender, with normal bowel sounds. No distension or tympany. No guarding or rebound. No evidence of tenderness throughout. Back: No spinal tenderness. No costovertebral tenderness. Full range of motion. Skin: Warm, dry with normal turgor. Normal color with no rashes, no lesions, and no evidence of cellulitis. MS/ Extremity: Pulses equal, no cyanosis. Neurovascular intact. Full, normal range of motion. Neuro: Awake and alert, GCS 15, oriented to person, place, time, and situation. Cranial nerves II-XII grossly intact. Motor strength 5/5 in all extremities. Sensory grossly intact. Cerebellar exam normal. Normal gait. Psych: Awake, alert, with orientation to person, place and time. Behavior, mood, and affect are within normal limits. 11:57 : CVA tenderness, is absent, Male external genitalia: normal, Bladder: distension, tenderness, that is mild, a clifford is noted, to gravity drainage, urine is clear. Vital Signs: 09:59 BP 165 / 94; Pulse 68; Resp 20; Temp 98.0(O); Pulse Ox 99% on R/A; Weight 64.86 kg; ss Height 5 ft. 8 in. (172.72 cm); Pain 5/10; 10:58 BP 152 / 87; Pulse 66; Resp 17; Pulse Ox 100% on R/A; rb1 11:58 BP 124 / 71; Pulse 52; Resp 17; Pulse Ox 97% on R/A; rb1 09:59 Body Mass Index 21.74 (64.86 kg, 172.72 cm) ss MDM: 09:55 Patient medically screened. wa 11:58 Differential diagnosis: urinary retention, clifford placed. over 800 cc of void. Data wa reviewed: vital signs, nurses notes. Test interpretation: by ED physician or midlevel provider: renal labs wnl. UA wnl. will d/c with leg bag and close f/u with urology. pt already on augmentin for his wounds. shd be adequate coverage for FB in bladder. Response to treatment: the patient's symptoms have markedly improved after treatment. 03/03 10:09 Order name: Basic Metabolic Panel; Complete Time: 11:45 oh 03/03 10:09 Order name: CBC with Diff; Complete Time: 11:12 oh 03/03 10:06 Order name: Bladder Scanner; Complete Time: 10:07 03/03 10:09 Order name: IV Saline Lock; Complete Time: 11:20 oh 03/03 10:54 Order name: Urine Dipstick--Ancillary (enter results) 03/03 10:09 Order name: Labs collected and sent; Complete Time: 11: oh 03/03 10:09 Order name: Urine Dipstick-Ancillary (obtain specimen); Complete Time: 11: oh 03/03 10:09 Order name: Clifford; Complete Time: 11: oh 03/03 11:46 Order name: Leg Bag; Complete Time: 12:15 oh Administered Medications: No medications were administered Disposition: 03/03/18 12:01 Discharged to Home. Impression: Acute Urinary Retention. - Condition is Stable. - Discharge Instructions: Acute Urinary Retention, Male, [id number]. - Medication Reconciliation Form, Thank You Letter, Antibiotic Education, Prescription Opioid Use form. - Follow up: Ruth Ocampo MD; When: 2 - 3 days; Reason: Recheck today's complaints. - Problem is new. - Symptoms have improved. - Notes: wear the leg bag until you see the urologist for further treatment and or instructions. continue your antibiotics Signatures: Dispatcher [facility] Kirsten Wells RN RN Julieta Hernandez RN RN rb1 Jared Corrales MD MD oh Corrections: (The following items were deleted from the chart) 12:28 12:01 03/03/2018 12:01 Discharged to Home. Impression: Acute Urinary Retention. rb1 Condition is Stable. Forms are Medication Reconciliation Form, Thank You Letter, Antibiotic Education, Prescription Opioid Use. Follow up: Ruth Ocampo; When: 2 - 3 days; Reason: Recheck today's complaints. Problem is new. Symptoms have improved. wa
[2018-03-03 12:34] VITALS: TEMP 98
[2018-03-03 12:36] VITALS: BP 124/71; O2SAT 97
[2018-03-03 13:51] LABS: Urine Blood TRACE (NEG); Urine Glucose NEGATIVE (NEG); Urine Protein 1+ (NEG); Urine Specific Gravity 1.015 (1.005-1.030); Urine pH 6.5 (5.0-7.0)
== END 2018-03-03 12:28 | disposition home or self-care (01) ==
LOC: ER 09:48
DX: R33.9 Retention of urine, unspecified (principal); Z79.82 Long term (current) use of aspirin; I25.2 Old myocardial infarction; Z85.89 Personal history of malignant neoplasm of other organs and systems; Z89.512 Acquired absence of left leg below knee
CPT/HCPCS: 36415; 80048; 81003; 85025; 99284

== ENCOUNTER 2018-03-23 08:29 | Emergency (ER) | payer OTHER ==
[2018-03-23 12:59] LABS: Urine Blood NEGATIVE (NEG); Urine Glucose NEGATIVE (NEG); Urine Protein NEGATIVE (NEG); Urine Specific Gravity 1.015 (1.005-1.030); Urine pH 6.5 (5.0-7.0)
--- NOTE | 2018-03-24 00:58 | EDPHYS ---
Physician Documentation [facility] Name: Charan Werner Age: 77 yrs Sex: Male : 1940 Arrival Date: 03/23/2018 Time: 09:28 Bed 13 Private MD: HARJEET Physician Dio Mensah Historical: - Allergies: 03/23 09:30 No Known Allergies; hj - Home Meds: 09:30 Laura 180 mg Oral tab 1 tab once daily [Active]; atorvastatin 80 mg Oral tab 1 tab hj once daily [Active]; Peggy Aspirin 81 mg Oral once daily [Active]; fenofibrate 145 MG Oral once daily [Active]; gabapentin 600 mg Oral tab nightly [Active]; Klor-Con 10 10 mEq Oral TbER 1 tab once daily [Active]; losartan-hydrochlorothiazide 100-25 mg Oral tab 1 tab once daily [Active]; metoprolol succinate 50 mg Oral Tb24 twice a day [Active]; PreserVision AREDS 2 [id number] [id number]-bw-mg Oral cap twice a day [Active]; Slo-Niacin 750 mg Oral TbER once daily [Active]; - PMHx: 09:30 Myocardial infarction; throat cancer; hj - PSHx: 09:30 Unable to obtain; hj - Immunization history:: Adult Immunizations up to date. - Social history:: Smoking status: Patient/guardian denies using tobacco, Patient/guardian denies using alcohol. - Ebola Screening: : Patient negative for fever greater than or equal to 101.5 degrees Fahrenheit, and additional compatible Ebola Virus Disease symptoms Patient denies exposure to infectious person Patient denies travel to an Ebola-affected area in the 21 days before illness onset. Vital Signs: 09:30 BP 164 / 64; Pulse 53; Resp 18; Temp 98.1(TE); Pulse Ox 100% on R/A; Weight 72.57 kg; hj Height 5 ft. 5 in. (165.10 cm); Pain 5/10; 09:30 Body Mass Index 26.63 (72.57 kg, 165.10 cm) hj MDM: 09:38 Patient medically screened. cp Administered Medications: No medications were administered Disposition: 03/23/18 10:23 Discharged to Home. Impression: Retention of urine. - Condition is Stable. - Prescriptions for Keflex 500 mg Oral Capsule - take 1 capsule by ORAL route every 12 hours for 10 days; 20 capsule. - Medication Reconciliation Form, Thank You Letter, Antibiotic Education, Prescription Opioid Use form. - Follow up: Ruth Ocampo MD; When: 2 - 3 days; Reason: Recheck today's complaints. - Problem is new. - Symptoms are resolved. Signatures: Syed Flores RN RN hj Dio Eduardo PA PA cp Corrections: (The following items were deleted from the chart) 10:46 10:23 03/23/2018 10:23 Discharged to Home. Impression: Retention of urine. Condition is hj Stable. Prescriptions for Keflex 500 mg Oral Capsule - take 1 capsule by ORAL route every 12 hours for 10 days; 20 capsule. and Forms are Medication Reconciliation Form, Thank You Letter, Antibiotic Education, Prescription Opioid Use. Follow up: Ruth Ocampo; When: 2 - 3 days; Reason: Recheck today's complaints. Problem is new. Symptoms are resolved. cp
--- NOTE | 2018-03-24 00:58 | ER ---
Nurse's Notes [facility] Name: Charan Werner Age: 77 yrs Sex: Male : 1940 Arrival Date: 03/23/2018 Time: :28 Bed 13 Private MD: Diagnosis: Retention of urine Presentation: 03/23 09:30 Acuity: BENOIT 4 hj 09:30 Presenting complaint: Patient states: unable to void for days now, denies fever and hj chills; denies nausea and vomiting;. Transition of care: patient was not received from another setting of care. Onset of symptoms was March 23, 2018. Risk Assessment: Do you want to hurt yourself or someone else? Patient reports no desire to harm self or others. Initial Sepsis Screen: Does the patient meet any 2 criteria? No. Patient's initial sepsis screen is negative. Does the patient have a suspected source of infection? No. Patient's initial sepsis screen is negative. Care prior to arrival: None. 09:30 Method Of Arrival: Ambulatory Triage Assessment: 09:30 General: Appears in no apparent distress. uncomfortable, Behavior is calm, cooperative, hj appropriate for age. Pain: Complains of pain in pelvis. 09:30 EENT: No signs and/or symptoms were reported regarding the EENT system. Neuro: Level of hj Consciousness is awake, alert, obeys commands, Oriented to person, place, time, situation, Appropriate for age. Cardiovascular: Capillary refill < 3 seconds Patient's skin is warm and dry. Respiratory: Airway is patent Respiratory effort is even, unlabored, Respiratory pattern is regular, symmetrical. GI: No signs and/or symptoms were reported involving the gastrointestinal system. : bladder distention; Bladder is distended Reports inability to void. Derm: No signs and/or symptoms reported regarding the dermatologic system. Musculoskeletal: No signs and/or symptoms reported regarding the musculoskeletal system. Historical: - Allergies: :30 No Known Allergies; hj - Home Meds: 09:30 Laura 180 mg Oral tab 1 tab once daily [Active]; atorvastatin 80 mg Oral tab 1 tab hj once daily [Active]; Peggy Aspirin 81 mg Oral once daily [Active]; fenofibrate 145 MG Oral once daily [Active]; gabapentin 600 mg Oral tab nightly [Active]; Klor-Con 10 10 mEq Oral TbER 1 tab once daily [Active]; losartan-hydrochlorothiazide 100-25 mg Oral tab 1 tab once daily [Active]; metoprolol succinate 50 mg Oral Tb24 twice a day [Active]; PreserVision AREDS 2 [id number] xp-byfm-er-mg Oral cap twice a day [Active]; Slo-Niacin 750 mg Oral TbER once daily [Active]; - PMHx: 09:30 Myocardial infarction; throat cancer; hj - PSHx: 09:30 Unable to obtain; hj - Immunization history:: Adult Immunizations up to date. - Social history:: Smoking status: Patient/guardian denies using tobacco, Patient/guardian denies using alcohol. - Ebola Screening: : Patient negative for fever greater than or equal to 101.5 degrees Fahrenheit, and additional compatible Ebola Virus Disease symptoms Patient denies exposure to infectious person Patient denies travel to an Ebola-affected area in the 21 days before illness onset. Screenin:15 Abuse screen: Denies threats or abuse. Denies injuries from another. Nutritional hj screening: No deficits noted. Tuberculosis screening: No symptoms or risk factors identified. Fall Risk None identified. Assessment: 09:30 Reassessment: Patient and/or family updated on plan of care and expected duration. Pain hj level reassessed. Patient is alert, oriented x 3, equal unlabored respirations, skin warm/dry/pink. pt tolerated the clifford insertion, able to void 650 mls;. Vital Signs: 09:30 BP 164 / 64; Pulse 53; Resp 18; Temp 98.1(TE); Pulse Ox 100% on R/A; Weight 72.57 kg; hj Height 5 ft. 5 in. (165.10 cm); Pain 5/10; 09:30 Body Mass Index 26.63 (72.57 kg, 165.10 cm) hj ED Course: 09:15 Bladder scan completed. 630 mls;. hj 09:28 Patient arrived in ED. hj 09:30 Arm band placed on right wrist. hj 09:30 Patient has correct armband on for positive identification. Placed in gown. Bed in low hj position. Call light in reach. Side rails up X 1. Adult w/ patient. 09:38 Dio Eduardo PA is PHCP. cp 09:38 Dio Mensah MD is Attending Physician. cp 09:53 Syed Flores, RN is Primary Nurse. hj 09:54 Clifford cath inserted, using sterile technique. hj 10:01 Triage completed. hj 10:23 Ruth Ocampo MD is Referral Physician. cp 10:46 No provider procedures requiring assistance completed. Patient did not have IV access hj during this emergency room visit. Administered Medications: No medications were administered Outcome: 10:23 Discharge ordered by MD. cp 10:46 Discharged to home ambulatory, with family. hj 10:46 Condition: stable 10:46 Discharge instructions given to patient, family, Instructed on discharge instructions, follow up and referral plans. medication usage, Demonstrated understanding of instructions, follow-up care, medications, Prescriptions given X 1. 10:46 Patient left the ED. hj Signatures: Syed Flores RN RN Dio Yusuf, PA PA cp
[2018-03-24 01:01] VITALS: BP 164/64; TEMP 98.1; O2SAT 100
== END 2018-03-23 10:46 | disposition home or self-care (01) ==
LOC: ER 08:29
DX: R33.9 Retention of urine, unspecified (principal); I25.2 Old myocardial infarction; Z79.82 Long term (current) use of aspirin; Z85.46 Personal history of malignant neoplasm of prostate
CPT/HCPCS: 51702; 81003; 99284

== ENCOUNTER 2018-07-01 15:45 | Emergency (ER) | payer OTHER ==
[2018-07-01] MEDS ORDERED: CLINDAMYCIN HCL 150 MG CAP ONE (16:16)
[2018-07-01] MEDS ORDERED: TETANUS & DIPHTHERIA TOX,ADULT 0.5 ML VIAL ONE (16:16)
--- NOTE | 2018-07-01 16:16 | EDPHYS ---
Physician Documentation [facility] Name: Charan Werner Age: 77 yrs Sex: Male : 1940 Arrival Date: 07/01/2018 Time: 15:49 Bed 24 Private MD: Hero Kendrick T ED Physician Quique Kerr HPI: 07/01 23:54 This 77 yrs old Male presents to ER via Wheelchair with complaints of Skin snw Sore(s). 23:54 Onset: The symptoms/episode began/occurred suddenly, just prior to arrival. Associated snw signs and symptoms: The patient has no apparent associated signs or symptoms. Modifying factors: The patient symptoms are alleviated by nothing, the patient symptoms are aggravated by nothing. It is unknown whether or not the patient has had similar symptoms in the past. It is unknown whether or not the patient has recently seen a physician. Historical: - Allergies: 16:03 NKA; iw - Home Meds: 16:03 atorvastatin 80 mg Oral tab 1 tab once daily [Active]; Laura 180 mg Oral tab 1 tab iw once daily [Active]; aspirin 325 mg Oral tab 1 tab once daily [Active]; fenofibrate 160 mg oral tab 1 tab once daily [Active]; Klor-Con 10 10 mEq Oral TbER 1 tab once daily [Active]; losartan-hydrochlorothiazide 100-25 mg Oral tab 1 tab once daily [Active]; metoprolol succinate 50 mg Oral Tb24 twice a day [Active]; tamsulosin 0.4 mg oral cp24 1 cap once daily [Active]; - PMHx: 16:03 Myocardial infarction; throat cancer; iw - PSHx: 16:03 left BKA; iw - Immunization history:: Adult Immunizations unknown. - Ebola Screening: : Patient negative for fever greater than or equal to 101.5 degrees Fahrenheit, and additional compatible Ebola Virus Disease symptoms Patient denies exposure to infectious person Patient denies travel to an Ebola-affected area in the 21 days before illness onset No symptoms or risks identified at this time. - Social history:: Smoking status: Patient uses tobacco products, smokes one pack cigarettes per day. ROS: 23:53 Constitutional: Negative for fever, chills, and weight loss, Eyes: Negative for injury, snw pain, redness, and discharge, ENT: Negative for injury, pain, and discharge, Neck: Negative for injury, pain, and swelling, Cardiovascular: Negative for chest pain, palpitations, and edema, Respiratory: Negative for shortness of breath, cough, wheezing, and pleuritic chest pain, Abdomen/GI: Negative for abdominal pain, nausea, vomiting, diarrhea, and constipation, Back: Negative for injury and pain, : Negative for injury, bleeding, discharge, and swelling, MS/Extremity: Negative for injury and deformity, Neuro: Negative for headache, weakness, numbness, tingling, and seizure. 23:53 Skin: Positive for abrasion(s), of the left knee at the end of below the knee stump. Exam: 23:48 Constitutional: This is a well developed, well nourished patient who is awake, alert, snw and in no acute distress. Smells strongly of cigarettes Head/Face: Normocephalic, atraumatic. Eyes: Pupils equal round and reactive to light, extra-ocular motions intact. Lids and lashes normal. Conjunctiva and sclera are non-icteric and not injected. Cornea within normal limits. Periorbital areas with no swelling, redness, or edema. ENT: Nares patent. No nasal discharge, no septal abnormalities noted. Tympanic membranes are normal and external auditory canals are clear. Oropharynx with no redness, swelling, or masses, exudates, or evidence of obstruction, uvula midline. Mucous membranes moist. Neck: Trachea midline, no thyromegaly or masses palpated, and no cervical lymphadenopathy. Supple, full range of motion without nuchal rigidity, or vertebral point tenderness. No Meningismus. Chest/axilla: Normal chest wall appearance and motion. Nontender with no deformity. No lesions are appreciated. Cardiovascular: Regular rate and rhythm with a normal S1 and S2. No gallops, murmurs, or rubs. Normal PMI, no JVD. No pulse deficits. Respiratory: Lungs have equal breath sounds bilaterally, clear to auscultation and percussion. No rales, rhonchi or wheezes noted. No increased work of breathing, no retractions or nasal flaring. Abdomen/GI: Soft, non-tender, with normal bowel sounds. No distension or tympany. No guarding or rebound. No evidence of tenderness throughout. Back: No spinal tenderness. No costovertebral tenderness. Full range of motion. MS/ Extremity: Pulses equal, no cyanosis. Neurovascular intact. Full, normal range of motion. Neuro: Awake and alert, GCS 15, oriented to person, place, time, and situation. Cranial nerves II-XII grossly intact. Motor strength 5/5 in all extremities. Sensory grossly intact. Cerebellar exam normal. Normal gait. Psych: Awake, alert, with orientation to person, place and time. Behavior, mood, and affect are within normal limits. 23:48 Skin: Appearance: normal except for affected area, injury, abrasion(s), very small abrasion noted, of the left knee, end of stump, no erythema, no discharge. Spouse states pt knocked a scab off, Amputation was 27 yrs ago. Vital Signs: 15:57 BP 122 / 68; Pulse 69; Resp 17; Temp 97.8; Pulse Ox 100% on R/A; rv 16:24 BP 139 / 66; Pulse 62; Resp 18; Pulse Ox 100% on R/A; tl3 MDM: 16:16 Patient medically screened. snw 23:52 Data reviewed: vital signs, nurses notes. Data interpreted: Pulse oximetry: on room air snw is 100 %. Interpretation: normal. Counseling: I had a detailed discussion with the patient and/or guardian regarding: the historical points, exam findings, and any diagnostic results supporting the discharge/admit diagnosis, the presence of at least one elevated blood pressure reading (>120/80) during this emergency department visit, the need for outpatient follow up, to return to the emergency department if symptoms worsen or persist or if there are any questions or concerns that arise at home. Special discussion: I have referred the patient to see his PCP for further evaluation of high blood pressure. Based on the history and exam findings, there is no indication for further emergent testing or inpatient evaluation. I discussed with the patient/guardian the need to see the primary care provider for further evaluation of the symptoms. Administered Medications: 16:21 Drug: Clindamycin 300 mg Route: PO; tl3 16:23 Follow up: Response: Medication administered at discharge. tl3 16:22 Drug: Tetanus-Diphtheria Toxoid Adult 0.5 ml {Manager Of Business Operations: [employer] Exp: tl3 03/29/2021. Lot #: [id number]. } Route: IM; Site: right deltoid; 16:23 Follow up: Response: Medication administered at discharge. tl3 16:23 Drug: Hibiclens 4 % 1 application Route: Topical; Site: affected area; tl3 16:23 Follow up: Response: No adverse reaction tl3 Disposition: 07/01/18 16:16 Discharged to Home. Impression: Abrasion of knee - - remote below the knee amputation. - Condition is Stable. - Discharge Instructions: Abrasion, Contusion, Wound Infection, Deep Skin Avulsion, VIS, Tetanus, Diphtheria (Td) - [facility], Wound Care. - Prescriptions for Clindamycin HCl 300 mg Oral Capsule - take 1 capsule by ORAL route every 6 hours for 10 days; 40 capsule. - Medication Reconciliation Form, Thank You Letter, Antibiotic Education, Prescription Opioid Use form. - Follow up: Hero Kendrick MD; When: 2 - 3 days; Reason: Recheck today's complaints, Continuance of care, Re-evaluation by your physician. Follow up: Emergency Department; When: As needed; Reason: Fever > 102 F, Worsening of condition. - Problem is new. - Symptoms are unchanged. Addendum: 07/12/2018 15:38 Co-signature as Attending Physician, Quique Kerr MD Available for consultation at p s1 all times. . Signatures: Heidy Carrillo, BUTADIENE CONVERTER UTILITY OPERATOR-C BUTADIENE CONVERTER UTILITY OPERATOR-Csnw Sharon Tapia, FELY RN iw Quique Kerr MD MD ps1 Zoë Dsouza RN RN tl3 Corrections: (The following items were deleted from the chart) 07/01 16:41 16:16 07/01/2018 16:16 Discharged to Home. Impression: Abrasion of knee - - remote tl3 below the knee amputation. Condition is Stable. Forms are Medication Reconciliation Form, Thank You Letter, Antibiotic Education, Prescription Opioid Use. Follow up: Hero Kendrick; When: 2 - 3 days; Reason: Recheck today's complaints, Continuance of care, Re-evaluation by your physician. Follow up: Emergency Department; When: As needed; Reason: Fever > 102 F, Worsening of condition. Problem is new. Symptoms are unchanged. snw
--- NOTE | 2018-07-01 16:16 | ER ---
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 iw Transition of care: patient was not received from another setting of care. Onset of symptoms was June 30, 2018. Risk Assessment: Do you want to hurt yourself or someone else? Patient reports no desire to harm self or others. Initial Sepsis Screen: Does the patient meet any 2 criteria? No. Patient's initial sepsis screen is negative. Does the patient have a suspected source of infection? No. Patient's initial sepsis screen is negative. Care prior to arrival: Injury dressed. 15:59 Method Of Arrival: Wheelchair iw 16:01 Acuity: BENOIT 4 iw Historical: - Allergies: 16:03 NKA; iw - Home Meds: 16:03 atorvastatin 80 mg Oral tab 1 tab once daily [Active]; Laura 180 mg Oral tab 1 tab iw once daily [Active]; aspirin 325 mg Oral tab 1 tab once daily [Active]; fenofibrate 160 mg oral tab 1 tab once daily [Active]; Klor-Con 10 10 mEq Oral TbER 1 tab once daily [Active]; losartan-hydrochlorothiazide 100-25 mg Oral tab 1 tab once daily [Active]; metoprolol succinate 50 mg Oral Tb24 twice a day [Active]; tamsulosin 0.4 mg oral cp24 1 cap once daily [Active]; - PMHx: 16:03 Myocardial infarction; throat cancer; iw - PSHx: 16:03 left BKA; iw - Immunization history:: Adult Immunizations unknown. - Ebola Screening: : Patient negative for fever greater than or equal to 101.5 degrees Fahrenheit, and additional compatible Ebola Virus Disease symptoms Patient denies exposure to infectious person Patient denies travel to an Ebola-affected area in the 21 days before illness onset No symptoms or risks identified at this time. - Social history:: Smoking status: Patient uses tobacco products, smokes one pack cigarettes per day. Screenin:00 Abuse screen: Denies threats or abuse. Nutritional screening: No deficits noted. tl3 Tuberculosis screening: No symptoms or risk factors identified. Fall Risk Secondary diagnosis (15 points) impaired mobility. Assessment: 16:00 General: Appears in no apparent distress. comfortable, well groomed, well developed, tl3 well nourished, Behavior is calm, cooperative, appropriate for age. Pain: Denies pain. Neuro: Level of Consciousness is awake, alert, obeys commands, Oriented to person, place, time, situation, Appropriate for age. Cardiovascular: Patient's skin is warm and dry. Respiratory: Airway is patent Respiratory effort is even, unlabored, Respiratory pattern is regular, symmetrical. GI: No deficits noted. No signs and/or symptoms were reported involving the gastrointestinal system. : No deficits noted. No signs and/or symptoms were reported regarding the genitourinary system. EENT: No deficits noted. No signs and/or symptoms were reported regarding the EENT system. Derm: Wound noted on stub of left BTK amputation Wound is small area of open skin, with mild bleeding. Pt reports that there was a scab there that came off yesterday and the bleeding just has not stopped. Vital Signs: 15:57 BP 122 / 68; Pulse 69; Resp 17; Temp 97.8; Pulse Ox 100% on R/A; rv 16:24 BP 139 / 66; Pulse 62; Resp 18; Pulse Ox 100% on R/A; tl3 ED Course: 15:49 Patient arrived in ED. mr 15:49 Hero Kendrick MD is Private Physician. mr 15:55 Zoë Dsouza, FELY is Primary Nurse. tl3 15:56 [facility]C [facility] snw 15:56 Quique Kerr MD is Attending Physician. snw 16:00 Patient has correct armband on for positive identification. Bed in low position. Call tl3 light in reach. Side rails up X 1. Adult w/ patient. Pulse ox on. NIBP on. 16:00 No provider procedures requiring assistance completed. Patient did not have IV access tl3 during this emergency room visit. Wound care: to located on left leg stub of BTK amputation was cleaned with Hibiclens, dressed with 4X4s. 16:01 Triage completed. iw 16:01 Hero Kendrick MD is Referral Physician. snw 16:03 Arm band placed on. iw Administered Medications: 16:21 Drug: Clindamycin 300 mg Route: PO; tl3 16:23 Follow up: Response: Medication administered at discharge. tl3 16:22 Drug: Tetanus-Diphtheria Toxoid Adult 0.5 ml {Pulmonary Physical Therapist: [employer] ([employer] Exp: tl3 03/29/2021. Lot #: [id number]. } Route: IM; Site: right deltoid; 16:23 Follow up: Response: Medication administered at discharge. tl3 16:23 Drug: Hibiclens 4 % 1 application Route: Topical; Site: affected area; tl3 16:23 Follow up: Response: No adverse reaction tl3 Outcome: 16:16 Discharge ordered by . snw 16:40 Discharged to home via wheelchair. tl3 16:40 Condition: stable 16:40 Discharge instructions given to patient, family, Instructed on discharge instructions, follow up and referral plans. Demonstrated understanding of instructions, follow-up care, medications, Prescriptions given X 1. 16:41 Patient left the ED. tl3 Signatures: Heidy Carrillo, AUTOMOTIVE INTERNET SALES MANAGER-C AUTOMOTIVE INTERNET SALES MANAGER-Csnw Hafsa Fonseca Irene, RN FELY iw Zoë Dsouza RN RN tl3 Leroy Cerrato RN RN rv
[2018-07-01 17:26] VITALS: TEMP 97.8; O2SAT 100
[2018-07-01 17:27] VITALS: BP 139/66
== END 2018-07-01 16:41 | disposition home or self-care (01) ==
LOC: ER 15:45
DX: S80.212A Abrasion, left knee, initial encounter (principal); X58.XXXA Exposure to other specified factors, initial encounter; Z23 Encounter for immunization; Z89.512 Acquired absence of left leg below knee; F17.210 Nicotine dependence, cigarettes, uncomplicated; I25.2 Old myocardial infarction; Z79.899 Other long term (current) drug therapy; Z79.82 Long term (current) use of aspirin; Z85.89 Personal history of malignant neoplasm of other organs and systems
CPT/HCPCS: 90714; 99284

== ENCOUNTER 2019-09-24 09:19 | Emergency (ER) | payer OTHER ==
[2019-09-24] MEDS ORDERED: NA CHLORIDE 0.9% 1,000 ML ONE ×2 (09:28→09:31)
[2019-09-24 09:31] LABS: Absolute Lymphocytes (CBC) 3.6 K/uL (0.7-4.9); Basophils % 0.4 % (0-1.3); Hematocrit 23.6 % (39.6-49.0); Lymphocytes % 33.4 % (15.3-44.8); MPV 8.2 fL (7.6-11.3); RBC Red Blood Cell Count 2.92 M/uL (4.33-5.43)
[2019-09-24] MEDS ORDERED: DOPAMINE/D5W 400 MG/250 ML BAG IV ONE (09:31)
[2019-09-24 09:36] LABS: Protime INR 1.33
[2019-09-24 09:51] LABS: Albumin 2.4 g/dL (3.4-5.0); Bilirubin Direct 0.1 mg/dL (0-0.2); Bilirubin Total 0.3 mg/dL (0.2-1.0); Potassium 3.8 mmol/L (3.5-5.1); Protein, Total 5.1 g/dL (6.4-8.2); Troponin (Emerg Dept Use Only) 0.06 ng/mL (0.0-0.045)
--- NOTE | 2019-09-24 10:01 | ER ---
Nurse's Notes [facility] Name: Charan Werner Age: 79 yrs Sex: Male : 1940 Arrival Date: 09/24/2019 Time: 09:19 Bed 4 Private MD: Diagnosis: Aortic aneurysm of unspecified site, ruptured;Hypotension, unspecified Presentation: 09/23 09:20 Chief complaint: EMS states: ABDOMINAL PAIN WITH SYNCOPE THIS AM. Coronavirus screen: bp The patient has NOT traveled to a country currently being monitored by the [facility] within the last 14 days. The patient has NOT had contact with any known and/or suspected case of coronavirus. Proceed with normal triage procedures. Ebola Screen: No symptoms or risks identified at this time. Initial Sepsis Screen: Does the patient meet any 2 criteria? No. Patient's initial sepsis screen is negative. Does the patient have a suspected source of infection? No. Patient's initial sepsis screen is negative. Risk Assessment: Do you want to hurt yourself or someone else? Patient reports no desire to harm self or others. Care prior to arrival: IV initiated. 20 GA, in the right antecubital area, Glucose check: 247. 09:20 Method Of Arrival: EMS: [facility] bp 09:20 Acuity: BENOIT 2 bp 11:07 Onset of symptoms was September 24, 2019. jl7 Triage Assessment: 09:25 General: Appears distressed, comfortable, slender, Behavior is appropriate for age, bp flat, listless. Pain: Denies pain. EENT: No deficits noted. Neuro: No deficits noted. Cardiovascular: No deficits noted. Respiratory: Reports shortness of breath. GI: Abdomen is LOWER PULSATILE MASS. : No signs and/or symptoms were reported regarding the genitourinary system. Derm: No deficits noted. Musculoskeletal: No deficits noted. Historical: - Allergies: 09:25 NKA; bp - Home Meds: 09:25 metoprolol succinate 50 mg Oral Tb24 1 tab twice a day [Active]; Klor-Con 10 10 mEq bp Oral TbER 1 tab once daily [Active]; Tricor 160 MG Oral 1 cap once daily [Active]; Hyzaar 100-25 mg Oral tab 1 tab once daily [Active]; Plavix 75 mg Oral tab 1 tab once daily [Active]; Lipitor 80 mg Oral tab 1 tab once daily [Active]; aspirin 325 mg Oral tab 1 tab once daily [Active]; - PMHx: 09:25 Myocardial infarction; throat cancer; bp - Immunization history:: Adult Immunizations unknown. - Social history:: Smoking status: unknown. - Family history:: not pertinent. - Hospitalizations: : No recent hospitalization is reported. Screenin:27 Abuse screen: Denies threats or abuse. Denies injuries from another. Nutritional bp screening: No deficits noted. Tuberculosis screening: No symptoms or risk factors identified. Fall Risk None identified. Assessment: 09:20 General: SEE TRIAGE NOTE. GROSSLY ABNORMAL PULSATILE MASS NOTED ON EXAMINATION OF THE bp PT ABDOMEN. MD AT / WITH U/S FOR FAST EXAM. 10:20 Reassessment: REPORT TO LILIANA GEIGER AT [facility]. [facility] FOR TRANSPORT. bp FAMILY AT /, MOT SIGNED/WITNESSED. 10:31 Reassessment: 2 units PRBCs started to central line. jl7 10:45 Reassessment: [facility] at bedside to transport pt. jl7 Vital Signs: 09:20 BP 138 / 70; Pulse 70; Resp 19; Temp 97.5; Pulse Ox 100% ; Weight 68.04 kg; bp 09:30 BP 57 / 45; Pulse 60; Resp 20; Pulse Ox 100% on 15% Non-rebreather mask; bp 09:45 BP 83 / 43; Pulse 75; Resp 18; Pulse Ox 95% on Non-rebreather mask; bp 09:50 BP 106 / 49; Pulse 84; Resp 17 S; Pulse Ox 99% on 2 lpm NC; jl7 10:08 BP 106 / 39; Pulse 84; Resp 17; Pulse Ox 99% ; jl7 10:15 BP 90 / 46; Pulse 85; Resp 17; Pulse Ox 96% ; jl7 10:25 BP 97 / 45; Pulse 86; Resp 17; Pulse Ox 95% ; jl7 10:35 BP 95 / 50; Pulse 76; Resp 17; Pulse Ox 100% ; jl7 10:45 BP 92 / 50; Pulse 80; Resp 17 S; Pulse Ox 100% on 2 lpm NC; jl7 ED Course: 09:19 Patient arrived in ED. rn 09:19 hospital monitor on. Pulse ox on. NIBP on. jl7 09:19 Warm blanket given. jl7 09:20 Stefany, Chadwick, RN is Primary Nurse. bp 09:20 Maintain EMS IV. Dressing intact. Good blood return noted. Site clean \T\ dry. Gauge \T\ bp site: 20 GAUGE R AC. 09:21 Triage completed. bp 09:22 Peter Moyer MD is Attending Physician. rn 09:25 Inserted saline lock: 22 gauge in left wrist, using aseptic technique. jl7 09:26 Arm band placed on. bp 09:27 Patient has correct armband on for positive identification. Bed in low position. Call bp light in reach. Side rails up X2. 09:30 Assisted provider with central line placement. Set up central line tray. Triple lumen jl7 line placed in right femoral. Line placed by Peter Moyer MD Placement verified by blood return, Dressed with Tape, Tegaderm, Blood was collected. Patient tolerated well. Before procedure, did Practitioner(s) obtain informed consent? No. Patient \T\ family education about procedure, CLABSI prevention and S/S of infection? Yes. Time-out/Briefing performed prior to start of procedure? Yes. Was handwashing/sanitizing done immediately prior to procedure? Yes. Was patient positioned to in a way to prevent air embolism? Yes. Was procedure site sterilized? Was the site allowed to dry? Yes. Was local anesthetic and/or sedation utilized? Yes. During the procedure, did the Practitioner(s) maintain a sterile field? Yes. Were unused ports clamped during insertion? Yes. Was a 2nd qualified MD obtained after 3 unsuccessful insertion attempts? No. Was blood aspirated from each lumen? Yes. After the procedure, did the Practitioner(s) clean the site and apply a sterile dressing? Yes. 09:48 EKG done, by industrial technologist. reviewed by Peter Moyer MD. at1 10:11 CT Aorta for Dissection In Process Unspecified. EDMS 10:28 XRAY Chest (1 view) In Process Unspecified. EDMS 11:07 Patient transferred, IV remains in place. intact, No redness/swelling at site. jl7 Administered Medications: 09:20 Drug: NS 0.9% 500 ml Route: IV; Rate: bolus; Site: right antecubital; jl7 10:30 Follow up: Response: No adverse reaction; IV Status: Completed infusion; IV Intake: jl7 1000ml ; Dr. Moyer gave VO to infuse the additional 500 mL 09:30 Drug: Dopamine drip 5 mcg/kg/min - (DOPamine 400 mg, D5W 250 ml) Route: IV; Rate: bp calculated rate; Site: right femoral; 11:09 Follow up: Response: No adverse reaction; IV Status: Infusion continued upon transfer jl7 09:40 Drug: NS 0.9% 1000 ml Route: IV; Rate: 1000 ml; Site: right femoral; jl7 10:15 Follow up: Response: No adverse reaction; IV Status: Completed infusion; IV Intake: jl7 1000ml Intake: 10:15 IV: 1000ml; Total: 1000ml. jl7 10:30 IV: 1000ml; Total: 2000ml. jl7 Outcome: 10:00 ER care complete, transfer ordered by . rn 11:07 Transferred by helicopter to [facility], Transfer form completed. X-rays sent jl7 w/ patient. 11:07 Condition: stable 11:07 Discharge instructions given to patient, family, Instructed on the need for transfer, Demonstrated understanding of instructions. 11:08 Patient left the ED. jl7 Signatures: Dispatcher [employer] EDMS Peter Moyer MD MD rn Gonzales, Amanda, business services manager EKG Tat1 Ashleigh Roberts RN RN jl7 Chadwick Mccall RN RN bp Corrections: (The following items were deleted from the chart) 09:46 09:20 General: SEE TRIAGE NOTE. bp bp 10:21 00:30 Dopamine drip 5 mcg/kg/min - (DOPamine 400 mg, D5W 250 ml) IV at calculated rate bp in right forearm jl7 10:21 09:40 Rate change 10 mcg/kg/min jl7 bp
--- NOTE | 2019-09-24 10:01 | EDPHYS ---
Physician Documentation [facility] Name: Charan Werner Age: 79 yrs Sex: Male : 1940 Arrival Date: 09/24/2019 Time: 09:19 Bed 4 Private MD: ED Physician Peter Moyer HPI: 09/23 09:37 This 79 yrs old Male presents to ER via EMS with complaints of abdominal rn pain, syncope. 09:37 The patient presents with abdominal pain in the lower abdomen. Onset: The rn symptoms/episode began/occurred just prior to arrival. The symptoms do not radiate. Per Report, abd pain that began today, sudden onset, assoc with 2 episodes of syncope and hypotension. Denies chest pain. Initial BP was 60s systolic. Improved with fluids. . 09:52 Associated signs and symptoms: Pertinent positives: nausea, Pertinent negatives: blood rn in stools, fever. The symptoms are described as sharp, stabbing. Modifying factors: The symptoms are alleviated by nothing, the symptoms are aggravated by touching the area. Severity of pain: At its worst the pain was moderate in the emergency department the pain has improved. The patient has not experienced similar symptoms in the past. Historical: - Allergies: 09:25 NKA; bp - Home Meds: 09:25 metoprolol succinate 50 mg Oral Tb24 1 tab twice a day [Active]; Klor-Con 10 10 mEq bp Oral TbER 1 tab once daily [Active]; Tricor 160 MG Oral 1 cap once daily [Active]; Hyzaar 100-25 mg Oral tab 1 tab once daily [Active]; Plavix 75 mg Oral tab 1 tab once daily [Active]; Lipitor 80 mg Oral tab 1 tab once daily [Active]; aspirin 325 mg Oral tab 1 tab once daily [Active]; - PMHx: 09:25 Myocardial infarction; throat cancer; bp - Immunization history:: Adult Immunizations unknown. - Social history:: Smoking status: unknown. - Family history:: not pertinent. - Hospitalizations: : No recent hospitalization is reported. ROS: 09:52 Constitutional: Negative for fever, chills, and weight loss, Eyes: Negative for injury, rn pain, redness, and discharge, Cardiovascular: Negative for chest pain, palpitations, and edema, Respiratory: Negative for shortness of breath, cough, wheezing, and pleuritic chest pain, Abdomen/GI: + abd pain and nausea MS/Extremity: Negative for injury and deformity, Skin: Negative for injury, rash, and discoloration, Neuro: Negative for headache, numbness, tingling, and seizure. Exam: 09:52 Constitutional: This is a well developed, well nourished patient who is awake, alert, rn pale Head/Face: Normocephalic, atraumatic. ENT: dry MM Cardiovascular: Regular rate and rhythm. Intact and eaqual distal pulses Respiratory: No increased work of breathing, no retractions or nasal flaring. Abdomen/GI: soft, + mid large pulsatile mass Skin: Warm, dry, cool MS/ Extremity: Pulses equal, no cyanosis. Neuro: Awake and alert, GCS 15 Vital Signs: 09:20 BP 138 / 70; Pulse 70; Resp 19; Temp 97.5; Pulse Ox 100% ; Weight 68.04 kg; bp 09:30 BP 57 / 45; Pulse 60; Resp 20; Pulse Ox 100% on 15% Non-rebreather mask; bp 09:45 BP 83 / 43; Pulse 75; Resp 18; Pulse Ox 95% on Non-rebreather mask; bp 09:50 BP 106 / 49; Pulse 84; Resp 17 S; Pulse Ox 99% on 2 lpm NC; jl7 10:08 BP 106 / 39; Pulse 84; Resp 17; Pulse Ox 99% ; jl7 10:15 BP 90 / 46; Pulse 85; Resp 17; Pulse Ox 96% ; jl7 10:25 BP 97 / 45; Pulse 86; Resp 17; Pulse Ox 95% ; jl7 10:35 BP 95 / 50; Pulse 76; Resp 17; Pulse Ox 100% ; jl7 10:45 BP 92 / 50; Pulse 80; Resp 17 S; Pulse Ox 100% on 2 lpm NC; jl7 Procedures: 09:37 Central Line: the site was prepped with Betadine, in sterile fashion, a triple lumen rn catheter was inserted, in the right in 1 attempts. placement was verified, by blood return, the site was dressed with Tegaderm, using sterile technique, the patient tolerated the procedure, well. 09:37 Ultrasound: Type: Fast exam, AAA scan, performed by the emergency department physician, rn Bedside u/s performed by nh, 11cm aorta with hematoma/intravascular material > 50% of lumen, no obvious fluid on FAST.. MDM: 09:22 Patient medically screened. rn 09:37 ED course: Most likely or highly concerning presentation of ruptured/leaking AAA given rn ultrasound findings, hypotension, syncope, and sudden abd pain, initiated transfer via life flight, awaiting call back. . ED course: fluids and dopamine started, type and screen sent.. 09:48 ED course: emergency release blood ordered for hemoglobin 7.6, pt denies blood in rn stool, mild blood in urine. 09:58 Differential diagnosis: AAA, ruptured AAA, dissection. Data reviewed: vital signs, rn nurses notes, lab test result(s), radiologic studies, ultrasound, and as a result, I will admit patient. Counseling: I had a detailed discussion with the patient and/or guardian regarding: the historical points, exam findings, and any diagnostic results supporting the discharge/admit diagnosis, radiology results, the need to transfer to another facility. Response to treatment: the patient's symptoms have mildly improved after treatment, and as a result, I will admit patient. ED course: Accepted for transfer to [facility] for suspected AAA with rupture/dissection. Improved BP, has stabilized for CT, getting CT aorta.. 09/23 09:20 Order name: NT PRO-BNP; Complete Time: 09:56 09/23 09:20 Order name: Basic Metabolic Panel; Complete Time: 09:56 09/23 09:20 Order name: CBC with Diff; Complete Time: 09:48 09/23 09:20 Order name: LFT's; Complete Time: 09:56 09/23 09:20 Order name: PT-INR; Complete Time: 09:48 09/23 09:20 Order name: Troponin (emerg Dept Use Only); Complete Time: 09:56 09/23 09:20 Order name: XRAY Chest (1 view) 09/23 09:21 Order name: CT Aorta for Dissection 09/23 09:31 Order name: T\T\S 09/23 09:32 Order name: Type and Screen [facility] 09/23 09:36 Order name: Lactate 09/23 09:57 Order name: Packed RBC Leukored [facility] 09/23 09:57 Order name: RBC Leukored Pheresis [facility] 09/23 09:20 Order name: EKG; Complete Time: 09:21 rn 09/23 09:20 Order name: Cardiac monitoring; Complete Time: 09:46 rn 09/23 09:20 Order name: EKG - Nurse/Tech; Complete Time: 09:46 rn 09/23 09:20 Order name: IV Saline Lock; Complete Time: 09:46 rn 09/23 09:20 Order name: Labs collected and sent; Complete Time: 09:46 rn 09/23 09:20 Order name: O2 Per Protocol; Complete Time: 09:47 rn 09/23 09:20 Order name: O2 Sat Monitoring; Complete Time: 09:47 rn Administered Medications: 09:20 Drug: NS 0.9% 500 ml Route: IV; Rate: bolus; Site: right antecubital; jl7 10:30 Follow up: Response: No adverse reaction; IV Status: Completed infusion; IV Intake: jl7 1000ml ; Dr. Moyer gave VO to infuse the additional 500 mL 09:30 Drug: Dopamine drip 5 mcg/kg/min - (DOPamine 400 mg, D5W 250 ml) Route: IV; Rate: bp calculated rate; Site: right femoral; 11:09 Follow up: Response: No adverse reaction; IV Status: Infusion continued upon transfer jl7 09:40 Drug: NS 0.9% 1000 ml Route: IV; Rate: 1000 ml; Site: right femoral; jl7 10:15 Follow up: Response: No adverse reaction; IV Status: Completed infusion; IV Intake: jl7 1000ml Disposition: 09/24/19 10:00 Transfer ordered to [facility]. Diagnosis are Aortic aneurysm of unspecified site, ruptured, Hypotension, unspecified. - Reason for transfer: Higher level of care. - Accepting physician is Dr. Hernandez. - Condition is Serious. - Problem is new. - Symptoms have improved. Critical care time excluding procedures: 09:58 Critical care time: Bedside Care: 25 minutes, Consultation: 5 minutes, Family rn Intervention: 5 minutes. Total time: 35 minutes Signatures: Dispatcher [employer] EDPeter Gandara MD MD rn Leal, Jahala RN RN jl7 Chadwick Mccall RN RN bp Corrections: (The following items were deleted from the chart) 10:00 10:00 09/24/2019 10:00 Transfer ordered to [facility]. Diagnosis is Aortic rn aneurysm of unspecified site, ruptured; Hypotension, unspecified. Reason for transfer: Higher level of care. Accepting physician is . Condition is Serious. Problem is new. Symptoms have improved. rn 11:08 10:00 09/24/2019 10:00 Transfer ordered to [facility]. Diagnosis is Aortic jl7 aneurysm of unspecified site, ruptured; Hypotension, unspecified. Reason for transfer: Higher level of care. Accepting physician is Dr. Hernandez. Condition is Serious. Problem is new. Symptoms have improved. rn
[2019-09-24] MEDS ORDERED: NA CHLORIDE 0.9% 500 ML ONE (10:13)
--- NOTE | 2019-09-24 10:19 | RAD REPORT ---
EXAM DESCRIPTION: CT - Angio Aorta For Dissection - 09/24/2019 10:10 am CLINICAL HISTORY: abd pain, syncope, AAA with dissection COMPARISON: CT study September 23, 2019 TECHNIQUE: Dynamically enhanced 3 mm thick images of the chest, abdomen, and upper pelvis were obtai whit during administration of approximately 150mL Isovue 370 IV contrast. Sagittal and coronal reconst ruction images were generated using MIP and reviewed. Exam utilizes a protocol to evaluate entire cou rse of the aorta. All CT scans are performed using dose optimization technique as appropriate and may include automated exposure control or mA/KV adjustment according to patient size. FINDINGS: Again noted is the large 11 centimeter abdominal aortic aneurysm. On the current examinati on there is a thin irregular curvilinear collection of contrast at the midportion of the aorta. This is a new collection from the prior examination extending into the mural thrombus seen on the prior da y study. There is a large amount of blood filling the right side of the abdomen. The patient has pres umably ruptured through the right lateral margin of this aneurysm. No active extravasation of contras t into the peritoneal cavity. The aneurysm is 14 cm CC x 10 cm AP x 11 cm TR. No other changes to the aorta. Rim calcification mary ins. No displaced calcifications. Dense arterial calcification and stenosis of the common iliac vascu lature noted. No acute GI or process. 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 IMPRESSION: Rupture of a previously detailed large abdominal aortic aneurysm. There is a large amoun t of hemorrhage in the midline and right side peritoneal cavity. A thin curvilinear collection of contrast is present within the lumen of the aneurysm inferiorly. Thi s is extending into mural thrombus but does not extend beyond the margin of the aneurysm. This collec tion is new from the prior day study and is presumed to be the pathway of rupture through the right l ateral margin. No active extravasation into the peritoneal cavity.
--- NOTE | 2019-09-24 10:28 | EKG ---
Test Date: 2019-09-24 Test Time: 09:39:10 Instructional Technology Teacher: SARA MEASUREMENT RESULTS: Intervals: Rate: 61 LA: 98 QRSD: 146 QT: 494 QTc: 497 [place]: P: 119 LA: 98 QRS: 98 T: 62 INTERPRETIVE STATEMENTS: Suspect arm lead reversal, interpretation assumes no reversal Sinus rhythm with short LA Nonspecific intraventricular block Possible Right ventricular hypertrophy Abnormal ECG Compared to ECG 02/26/2018 07:45:21 Short LA interval now present Sinus bradycardia no longer present Atrial premature complex(es) no longer present Right bundle-branch block no longer present Electronically Signed On 09-24-19 10:28:08 CDT by Roshan Akbar
--- NOTE | 2019-09-24 10:33 | RAD REPORT ---
EXAM DESCRIPTION: RAD - Chest Single View - 09/24/2019 10:28 am CLINICAL HISTORY: syncope, possible AAA Chest pain. COMPARISON: Chest Pa And Lat (2 Views) dated 03/26/2018; Chest Single View dated 02/26/2018; Chest Pa And Lat (2 Views) dated 10/09/2017; Chest Single View dated 06/20/2016 FINDINGS: Portable technique limits examination quality. The lungs are grossly clear. The heart is normal in size. No displaced fractures. IMPRESSION: No acute intrathoracic process suspected.
[2019-09-24 11:38] VITALS: TEMP 97.5
[2019-09-24 11:48] VITALS: O2SAT 100
[2019-09-24 11:50] VITALS: BP 92/50
== END 2019-09-24 11:08 | disposition short-term general hospital (02) ==
LOC: ER 09:19
PROC: 06HM33Z Insertion of Infusion Device into Right Femoral Vein, Percutaneous Approach (ICD-10-PCS; principal; 2019-09-24)
PROC: 30233N1 Transfusion of Nonautologous Red Blood Cells into Peripheral Vein, Percutaneous Approach (ICD-10-PCS; 2019-09-24)
DX: I71.8 Aortic aneurysm of unspecified site, ruptured (principal); I95.9 Hypotension, unspecified; I25.2 Old myocardial infarction; Z85.21 Personal history of malignant neoplasm of larynx; Z79.01 Long term (current) use of anticoagulants
CPT/HCPCS: 93005; 85025; 80048; 36415; 86900; 86850; 85610; 86901; 80076; 83605; 84484; 83880; 71275; 74175; 71045; 36556; 36430; Q9967; P9016 ×2; J1265; J7030 ×3; 96365; 96366; 99285